=== PATIENT | male | born 1960 | race Caucasian/White ===

== ENCOUNTER 2016-04-25 19:52 | Inpatient (IN) | payer MEDICAID ==
--- NOTE | ~2016-04-25 | EKG ---
PATIENT: CESIA CASTRO UNIT #: [id number] Ventricular Rate: 60 BPM Atrial Rate: 60 BPM P-R Interval: 156 ms QRS Duration: 108 ms Q-T Interval: 394 ms QTC Calculation(Bezet): 394 ms P [place]: 67 degrees Calculated R [place]: -25 degrees Calculated T [place]: 18 degrees Diagnosis Line: Normal sinus rhythm Diagnosis Line: Normal ECG Diagnosis Line: When compared with ECG of 29-APR-2016 06:42, Diagnosis Line: No significant change was found Diagnosis Line: Confirmed by CORA ANTONIO MD ([id number]) on 05/02/2016 Diagnosis Line: 6:22:43 PM INTERPRETING MD: MARISELA DENTON
--- NOTE | ~2016-04-25 | EKG ---
PATIENT: CESIA CASTRO UNIT #: [id number] Ventricular Rate: 91 BPM Atrial Rate: 91 BPM P-R Interval: 158 ms QRS Duration: 96 ms Q-T Interval: 342 ms QTC Calculation(Bezet): 420 ms P [place]: 77 degrees Calculated R [place]: -31 degrees Calculated T [place]: 39 degrees Diagnosis Line: Normal sinus rhythm Diagnosis Line: Possible Left atrial enlargement Diagnosis Line: Left axis deviation Diagnosis Line: Abnormal ECG Diagnosis Line: When compared with ECG of 25-APR-2016 19:29, Diagnosis Line: (unconfirmed) Diagnosis Line: Criteria for Inferior infarct are no longer Diagnosis Line: Present Diagnosis Line: Nonspecific T wave abnormality no longer evident Diagnosis Line: in Lateral leads Diagnosis Line: Confirmed by VIKRAM DAMIAN MD ([id number]) on Diagnosis Line: 04/29/2016 4:09:07 PM INTERPRETING MD: NTAI DENTON
--- NOTE | ~2016-04-25 | EKG ---
PATIENT: CESIA CASTRO UNIT #: [id number] Ventricular Rate: 67 BPM Atrial Rate: 67 BPM P-R Interval: 138 ms QRS Duration: 86 ms Q-T Interval: 386 ms QTC Calculation(Bezet): 407 ms P [place]: 63 degrees Calculated R [place]: -39 degrees Calculated T [place]: 7 degrees Diagnosis Line: Normal sinus rhythm Diagnosis Line: Left axis deviation Diagnosis Line: Abnormal ECG Diagnosis Line: When compared with ECG of 30-APR-2016 15:03, Diagnosis Line: (unconfirmed) Diagnosis Line: No significant change was found Diagnosis Line: Confirmed by CORA ANTONIO MD ([id number]) on 05/02/2016 Diagnosis Line: 6:24:27 PM INTERPRETING MD: MARISELA DENTON
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
--- NOTE | ~2016-04-25 | CR72 ---
[facility] A Service of [facility] RADIOLOGY TEXT RESULTS PATIENT: CESIA CASTRO LOCATION: [facility] [address]-01 : [birth year] UNIT #: [id number] AGE: [address]: Melida White MD SEX: M ORDER DR: [id number] [facility] [address] [facility]. [place], [place] [address] [id number] I MR#: [id number] Acc #: [id number] NAME: CESIA CASTRO. : 1960 SEX: M STUDY DATE/TIME: 04/25/2016 20:15 UNIT: [facility] ROOM: 10663 STUDY DESCRIPTION: CR Chest Single View Portable Attending Physician: Melida White M.D. Ordering Physician: Papi Peace M.D. Primary Care Physician: Bernardo Noyola M.D. MEDICAL IMAGING REPORT This report is preliminary unless electronic signature is present EXAM Portable chest HISTORY Shortness of air and cough for 3 days. Left-sided chest pain. COMPARISON 03/31/2016 FINDINGS A portable view of the chest was obtained. Heart size and vascularity are normal and the lungs are clear. The bones are unremarkable. IMPRESSION No active disease. Dictated by... Yayo Lee M.D. THIS IS AN ELECTRONICALLY VERIFIED REPORT Yayo Lee M.D. at 04/26/2016 4:32 PM VERONICA/roel TD: 04/26/2016 14:08 JOB #: [id number] MEDICAL IMAGING REPORT COPY
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
--- NOTE | ~2016-04-25 | EKG ---
PATIENT: CESIA CASTRO UNIT #: [id number] Ventricular Rate: 64 BPM Atrial Rate: 64 BPM P-R Interval: 158 ms QRS Duration: 98 ms Q-T Interval: 388 ms QTC Calculation(Bezet): 400 ms P [place]: 61 degrees Calculated R [place]: -22 degrees Calculated T [place]: -5 degrees Diagnosis Line: Normal sinus rhythm Diagnosis Line: Normal ECG Diagnosis Line: No previous ECGs available Diagnosis Line: Confirmed by CORA ANTONIO MD ([id number]) on 04/30/2016 Diagnosis Line: 7:14:12 AM INTERPRETING MD: MARISELA DENTON
--- NOTE | ~2016-04-25 | EKG ---
PATIENT: CESIA CASTRO UNIT #: [id number] Ventricular Rate: 61 BPM Atrial Rate: 61 BPM P-R Interval: 154 ms QRS Duration: 106 ms Q-T Interval: 392 ms QTC Calculation(Bezet): 394 ms P [place]: 68 degrees Calculated R [place]: -25 degrees Calculated T [place]: 10 degrees Diagnosis Line: Normal sinus rhythm Diagnosis Line: Normal ECG Diagnosis Line: When compared with ECG of 30-APR-2016 08:32, Diagnosis Line: No significant change was found Diagnosis Line: Confirmed by ANA LUJAN MD ([id number]) on 05/01/2016 Diagnosis Line: 5:41:50 PM INTERPRETING MD: TAI DENTON
--- NOTE | ~2016-04-25 | EKG ---
PATIENT: CESIA CASTRO UNIT #: [id number] Ventricular Rate: 103 BPM Atrial Rate: 103 BPM P-R Interval: 156 ms QRS Duration: 94 ms Q-T Interval: 330 ms QTC Calculation(Bezet): 432 ms P [place]: 82 degrees Calculated R [place]: -19 degrees Calculated T [place]: 72 degrees Diagnosis Line: Sinus tachycardia Diagnosis Line: Inferior infarct (cited on or before 31-MAR-2016) Diagnosis Line: Abnormal ECG Diagnosis Line: When compared with ECG of 31-MAR-2016 10:52, Diagnosis Line: Left anterior fascicular block is no longer Diagnosis Line: Present Diagnosis Line: Confirmed by VIKRAM DAMIAN MD ([id number]) on Diagnosis Line: 04/29/2016 3:57:14 PM INTERPRETING MD: NATI DENTON
--- NOTE | ~2016-04-25 | DS ---
Unit #: [id number] #: [id number] Patient: CESIA CASTRO [id number] [address] [address] [id number] I MR#: [id number] NAME: CESIA CASTRO. ROOM: 578 Age: 56 Sex: M Admission Date: 04/25/2016 : 1960 Discharge Date: 05/01/2016 Attending Physician: Melida White M.D. Primary Care Physician: Bernardo Noyola M.D. DISCHARGE SUMMARY ADMISSION DIAGNOSIS Acute exacerbation of chronic obstructive pulmonary disease. DISCHARGE DIAGNOSES 1. Acute exacerbation of chronic obstructive pulmonary disease, improved. 2. Coronary artery disease, status post PCI. 3. Gastroesophageal reflux disease. 4. Hypertension. 5. Depression. 6. Anxiety disorder. 7. Hyperlipidemia. CONSULTANTS Dr. River in cardiac consultation. Dr. Richter in pulmonary consultation. DIAGNOSTIC DATA LABORATORY: Creatinine 0.7, sodium 134, potassium 5.1. White blood cell count 21.1, hemoglobin 11.1, platelets 505. The patient's influenza A and B screen was negative. PROCEDURES PERFORMED The patient had a cardiac catheterization done, status post PCI. HOSPITAL COURSE The patient is a 56-year-old patient who presented to [facility] with shortness of air. Details are as per admission history and physical. Acute exacerbation of chronic obstructive pulmonary disease: The patient was treated with IV Solu-Medrol. The patient responded well and shortness of air has improved. Chest pain: The patient developed chest pain and myocardial infarction was ruled out. A cardiac catheterization was done and the patient underwent PCI and stent placement by Dr. River. Today the patient is comfortable and is not in any acute distress. PHYSICAL EXAMINATION VITALS: Temperature 97.7, pulse 65 per minute, respiratory rate 16 per minute, blood pressure 135/82. HEENT: No conjunctival congestion. Sclerae nonicteric. Unit #: [id number] #: [id number] Patient: CESIA CASTRO NECK: Supple. Trachea central. LUNGS: Breath sounds equal bilaterally. There are no wheezes or crackles. HEART: Regular rate and rhythm. S1 and S2. ABDOMEN: Soft and nontender. Bowel sounds are present in all four quadrants. NEUROLOGIC: The patient is alert to person, place and time. Power is 5/5 bilaterally. Sensations are grossly intact. SKIN: Warm and dry. DISCHARGE CONDITION Stable. ACTIVITY As tolerated. DISCHARGE MEDICATIONS 1. Albuterol MDI 2 puffs q.4 h. p.r.n. shortness of air. 2. Symbicort 160/4.5 one inhalation b.i.d. 3. Prednisone 20 mg 2 tablets p.o. daily for 5 days, then 1 p.o. daily for 5 days and the discontinue. 4. Tylenol 650 mg p.o. q.6 h. p.r.n. 5. Celexa 20 mg p.o. at nighttime. 6. Trazodone 50 mg p.o. at nighttime. 7. Lopressor 25 mg p.o. b.i.d. 8. Lipitor 80 mg p.o. at nighttime. 9. Lisinopril 20 mg p.o. at nighttime. 10. Enteric coated aspirin 81 mg p.o. daily. 11. Plavix 75 mg p.o. daily. 12. Protonix 40 mg p.o. daily. 13. Nitroglycerin sublingual 0.4 mg p.r.n. chest pain. 14. Zocor 40 mg at nighttime. 15. Atenolol 25 mg p.o. daily. FOLLOWUP 1. The patient is advised to follow up with primary care physician in one week. 2. Follow up with cardiology as recommended. 3. The patient is advised to call primary care physician or go to the emergency room if his condition changes. 4. We will check the patient's pulse oximetry prior to discharge on room air. Dictated by... Alfredito Joseph TD: 05/01/2016 09:43 JOB #: [id number] Unit #: [id number] #: [id number] Patient: CESIA CASTRO Rolf DISCHARGE SUMMARY X Melida White MD DISCHARGE SUMMARY
[2016-04-25 19:28] LABS: BASOPHIL# 0.1 X10e3 (0-0.3); BASOPHIL% 0.9 % (0-2.5); EOSINOPHIL# 0.2 X10e3 (0-0.7); EOSINOPHIL% 1.4 % (0.0-7.0); HEMATOCRIT 36.1 % (38.0-50.0); HEMOGLOBIN 11.7 gm/dL (13.0-16.0); LYMPHOCYTE% 8.4 % (17.0-45.0); MEAN CELL VOLUME 86.8 FL (83-96); MEAN CORPUSCULAR HEMOGLOBIN 28.2 PG (28-34); MEAN CORPUSCULAR HGB CONC 32.5 g/dL (30-36); MEAN PLATELET VOLUME 6.5 FL (6.5-11.5); MONOCYTE# 1.1 X10e3 (0-1.0); MONOCYTE% 8.9 % (3.0-12.0); NEUTROPHIL# 9.6 X10e3 (1.5-7.1); NEUTROPHIL% 80.4 % (40-75); PLATELET COUNT 547 X10e3 (140-420); RED BLOOD COUNT 4.16 X10e (3.90-5.60); RED CELL DISTRIBUTION WIDTH 15.4 % (11.0-15.5); WHITE BLOOD COUNT 11.9 X10e3 (4.0-10.5)
[2016-04-25 19:31] LABS: DIFF IND NO
[2016-04-25 19:31] LABS: POC - CKMB 1.7 ng/mL (0.0-7.9); POC - TROPONIN <0.05 ng/mL (<=0.05)
[2016-04-25 19:41] LABS: PROTHROMBIN TIME (PATIENT) 10.7 SECONDS (9.6-11.5)
[~2016-04-25 19:52] MED LIST: ALBUTEROL17 GM INH; ASPIRIN325 M1 PO; ATIVAN0.5 M1 PO; AZITHROMYCIN250 MG PO; CEFDINIR300 MG PO; CELEXA PO; CELEXA20 M1 PO; CELEXA20 MG PO; CHEWABLE ASPIRI81 MG PO; COMBIVENT RESPIM4 GM INH; CRESTOR PO; DESYREL50 MG PO; DOXYCYCLINE PO; EFFIENT10 MG PO; FERROUS GL325 ( 37.5 PO; HALDOL PO; HYDROCHLOROTHIA25 MG PO; HYDROXYZINE HCL25 M1 PO; LEVAQUIN750 M1 PO; LEVOFLOXACIN500 MG PO; LISINOPRIL20 MG PO; LOVASTATIN20 MG PO; MEDROL DOSEPAK4 MG PO; METOPROLOL TAR25 MG PO; MOBIC PO; MOBIC15 MG PO; MOTRIN600 MG PO; NEURONTIN300 MG PO; NITROSTAT0.4 MG SL; NO MEDICATIONS; NORCO 10/3251 TAB PO; NORVASC PO; PREDNISONE PO; PREDNISONE50 MG PO; PROAIR HFA8.5 GM; PROAIR HFA8.5 GM INH; PROTONIX PO; REMERON15 MG PO; SYMBICORT; SYMBICORT 160/4.6 G1 INH; SYMBICORT 16010.2 GM IH; SYMBICORT INH; VASOTEC PO; VISTARIL PO; ZESTRIL40 MG PO; ZITHROMAX PO
[2016-04-25 19:53] LABS: ALBUMIN SERUM 3.6 g/dL (3.5-5.0); ALKALINE PHOSPHATASE 74 U/L (32-92); ALT (SGPT) 16 U/L (10-40); AST (SGOT) 15 U/L (10-42); BILIRUBIN, DIRECT 0.1 mg/dL (0.0-0.2); BILIRUBIN,INDIRECT 0.3 mg/dL (0.0-0.9); BILIRUBIN,TOTAL 0.4 mg/dL (0.2-2.0); BLOOD UREA NITROGEN 14 mg/dL (9-23); CALCIUM SERUM 8.8 mg/dL (8.4-10.2); CARBON DIOXIDE 31 mmol/L (22-31); CHLORIDE 101 mmol/L (100-111); CREATININE SERUM 0.7 mg/dL (0.6-1.4); GLOM FILT RATE Estimated ABOVE60 mL/min (>60); GLUCOSE FASTING 119 mg/dL (70-110); POTASSIUM 4.1 mmol/L (3.5-5.1); PROTEIN TOTAL SERUM 7.3 g/dL (6.0-8.3); SODIUM 137 mmol/L (135-145)
[2016-04-25 20:03] LABS: INFLUENZA A NEG (NEG); INFLUENZA B NEG (NEG)
[2016-04-25 20:53] LABS: POC - CKMB 1.3 ng/mL (0.0-7.9); POC - TROPONIN <0.05 ng/mL (<=0.05)
[2016-04-26 04:11] LABS: HEMATOCRIT 34.2 % (38.0-50.0); LYMPHOCYTE# 0.4 X10e3 (1.0-3.5); LYMPHOCYTE% 5.2 % (17.0-45.0); MEAN CELL VOLUME 86.8 FL (83-96); MEAN CORPUSCULAR HEMOGLOBIN 27.9 PG (28-34); MEAN CORPUSCULAR HGB CONC 32.2 g/dL (30-36); MEAN PLATELET VOLUME 6.4 FL (6.5-11.5); MONOCYTE# 0.1 X10e3 (0-1.0); MONOCYTE% 0.7 % (3.0-12.0); NEUTROPHIL% 94.1 % (40-75); PLATELET COUNT 522 X10e3 (140-420); RED BLOOD COUNT 3.93 X10e (3.90-5.60); RED CELL DISTRIBUTION WIDTH 15.1 % (11.0-15.5); WHITE BLOOD COUNT 8.5 X10e3 (4.0-10.5)
[2016-04-26 04:14] LABS: DIFF IND NO
[2016-04-26 04:37] LABS: BLOOD UREA NITROGEN 19 mg/dL (9-23); BUN/CREATININE RATIO 27.14; CALCIUM SERUM 8.2 mg/dL (8.4-10.2); CARBON DIOXIDE 27 mmol/L (22-31); CHLORIDE 95 mmol/L (100-111); CPK (CREATINE PHOSPHOKINASE) 27 IU/L (36-174); CREATININE SERUM 0.7 mg/dL (0.6-1.4); GLOM FILT RATE Estimated ABOVE60 mL/min (>60); GLUCOSE FASTING 493 mg/dL (70-110); POTASSIUM 4.7 mmol/L (3.5-5.1)
[2016-04-26 04:43] LABS: SODIUM 127 mmol/L (135-145)
[2016-04-27 10:28] LABS: HEMATOCRIT 33.1 % (38.0-50.0); HEMOGLOBIN 10.9 gm/dL (13.0-16.0); MEAN CELL VOLUME 86.1 FL (83-96); MEAN CORPUSCULAR HEMOGLOBIN 28.4 PG (28-34); MEAN PLATELET VOLUME 6.3 FL (6.5-11.5); RED BLOOD COUNT 3.84 X10e (3.90-5.60)
[2016-04-27 10:29] LABS: WHITE BLOOD COUNT 16.3 X10e3 (4.0-10.5)
[2016-04-27 11:35] LABS: BLOOD UREA NITROGEN 25 mg/dL (9-23); BUN/CREATININE RATIO 41.66; CALCIUM SERUM 9.1 mg/dL (8.4-10.2); CARBON DIOXIDE 28 mmol/L (22-31); CHLORIDE 102 mmol/L (100-111); CREATININE SERUM 0.6 mg/dL (0.6-1.4); GLOM FILT RATE Estimated ABOVE60 mL/min (>60); GLUCOSE FASTING 205 mg/dL (70-110); POTASSIUM 4.3 mmol/L (3.5-5.1); SODIUM 137 mmol/L (135-145)
[2016-04-27 12:31] LABS: ARTERIAL BLD GAS O2 SATURATION 90.5 % (90.0-100.0); ARTERIAL BLOOD GAS CARBOXY HB 0.4 %sat (0.0-9.0); ARTERIAL BLOOD GAS HCO3 27.3 mmol/L; ARTERIAL BLOOD GAS MET HB 0.9 %sat (0.0-2.0); ARTERIAL BLOOD GAS PCO2 41.9 mmHg (35.0-45.0); ARTERIAL BLOOD GAS pH 7.423 (7.350-7.450)
[2016-04-27 12:32] LABS: ARTERIAL BLOOD GAS ALLEN TEST NORMAL; ARTERIAL BLOOD GAS ART SITE RIGHT RADIAL; ARTERIAL BLOOD GAS DELIVERY NASAL CANNULA; ARTERIAL BLOOD GAS PO2 61.4 mmHg (80.0-100); ARTERIAL DRAW? YES
[2016-04-28 07:49] LABS: HEMATOCRIT 34.2 % (38.0-50.0); HEMOGLOBIN 11.2 gm/dL (13.0-16.0); MEAN CELL VOLUME 85.4 FL (83-96); MEAN CORPUSCULAR HGB CONC 32.7 g/dL (30-36); MEAN PLATELET VOLUME 6.4 FL (6.5-11.5); RED CELL DISTRIBUTION WIDTH 15.3 % (11.0-15.5); WHITE BLOOD COUNT 15.8 X10e3 (4.0-10.5)
[2016-04-28 07:59] LABS: BLOOD UREA NITROGEN 26 mg/dL (9-23); BUN/CREATININE RATIO 43.33; CARBON DIOXIDE 27 mmol/L (22-31); CHLORIDE 101 mmol/L (100-111); CREATININE SERUM 0.6 mg/dL (0.6-1.4); GLOM FILT RATE Estimated ABOVE60 mL/min (>60); GLUCOSE FASTING 152 mg/dL (70-110); POTASSIUM 4.3 mmol/L (3.5-5.1); SODIUM 137 mmol/L (135-145)
[2016-04-28 12:21] LABS: CK TOTAL 28 IU/L (36-174)
[2016-04-28 15:23] LABS: CK TOTAL 19 IU/L (36-174)
[2016-04-29 06:09] LABS: HEMOGLOBIN 10.6 gm/dL (13.0-16.0); MEAN CELL VOLUME 85.5 FL (83-96); MEAN CORPUSCULAR HEMOGLOBIN 27.5 PG (28-34); MEAN CORPUSCULAR HGB CONC 32.2 g/dL (30-36); MEAN PLATELET VOLUME 6.5 FL (6.5-11.5); RED BLOOD COUNT 3.87 X10e (3.90-5.60); RED CELL DISTRIBUTION WIDTH 14.9 % (11.0-15.5)
[2016-04-29 06:29] LABS: PARTIAL THROMBOPLASTIN TIME 26.1 SECONDS (23.5-31.3); PROTHROMBIN TIME (PATIENT) 10.8 SECONDS (9.6-11.5)
[2016-04-29 06:38] LABS: BLOOD UREA NITROGEN 28 mg/dL (9-23); BUN/CREATININE RATIO 46.66; CALCIUM SERUM 8.9 mg/dL (8.4-10.2); CARBON DIOXIDE 26 mmol/L (22-31); CHLORIDE 102 mmol/L (100-111); CREATININE SERUM 0.6 mg/dL (0.6-1.4); GLOM FILT RATE Estimated ABOVE60 mL/min (>60); GLUCOSE FASTING 163 mg/dL (70-110); POTASSIUM 4.4 mmol/L (3.5-5.1); SODIUM 139 mmol/L (135-145)
[2016-04-29 06:45] LABS: CHOLESTEROL 149 mg/dL (0-200); HDL CHOLESTEROL 49 mg/dL (29-75); LDL CHOLESTEROL 81 mg/dL ([, -130]); LDL/HDL RATIO 2 RATIO (0-4); TRIGLYCERIDES 96 mg/dL (10-160)
[2016-04-30 09:22] LABS: HEMATOCRIT 34.8 % (38.0-50.0); HEMOGLOBIN 11.1 gm/dL (13.0-16.0); MEAN CELL VOLUME 85.5 FL (83-96); MEAN CORPUSCULAR HEMOGLOBIN 27.3 PG (28-34); MEAN CORPUSCULAR HGB CONC 31.9 g/dL (30-36); MEAN PLATELET VOLUME 6.3 FL (6.5-11.5); RED BLOOD COUNT 4.07 X10e (3.90-5.60); RED CELL DISTRIBUTION WIDTH 15.3 % (11.0-15.5); WHITE BLOOD COUNT 18.4 X10e3 (4.0-10.5)
[2016-04-30 09:42] LABS: PARTIAL THROMBOPLASTIN TIME 22.9 SECONDS (23.5-31.3); PROTHROMBIN TIME (PATIENT) 10.7 SECONDS (9.6-11.5)
[2016-04-30 09:53] LABS: BLOOD UREA NITROGEN 26 mg/dL (9-23); BUN/CREATININE RATIO 43.33; CALCIUM SERUM 8.8 mg/dL (8.4-10.2); CARBON DIOXIDE 28 mmol/L (22-31); CHLORIDE 102 mmol/L (100-111); CREATININE SERUM 0.6 mg/dL (0.6-1.4); GLOM FILT RATE Estimated ABOVE60 mL/min (>60); GLUCOSE FASTING 152 mg/dL (70-110); POTASSIUM 4.6 mmol/L (3.5-5.1); SODIUM 137 mmol/L (135-145)
[2016-04-30 23:29] LABS: ANGIO %MB 8.6 % (0.0-4.0); ANGIO MB 2.5 ng/ml
[2016-05-01 07:31] LABS: BASOPHIL% 0.1 % (0-2.5); HEMATOCRIT 34.3 % (38.0-50.0); HEMOGLOBIN 11.1 gm/dL (13.0-16.0); LYMPHOCYTE% 4.7 % (17.0-45.0); MEAN CELL VOLUME 85.3 FL (83-96); MEAN CORPUSCULAR HEMOGLOBIN 27.6 PG (28-34); MEAN CORPUSCULAR HGB CONC 32.4 g/dL (30-36); MEAN PLATELET VOLUME 6.5 FL (6.5-11.5); MONOCYTE# 0.8 X10e3 (0-1.0); MONOCYTE% 3.9 % (3.0-12.0); NEUTROPHIL# 19.2 X10e3 (1.5-7.1); NEUTROPHIL% 91.3 % (40-75); PLATELET COUNT 505 X10e3 (140-420); RED BLOOD COUNT 4.03 X10e (3.90-5.60); RED CELL DISTRIBUTION WIDTH 15.4 % (11.0-15.5); WHITE BLOOD COUNT 21.1 X10e3 (4.0-10.5)
[2016-05-01 07:40] LABS: DIFF IND YES
[2016-05-01 08:20] LABS: ANGIO %MB 8.8 % (0.0-4.0); ANGIO MB 2.8 ng/ml
[2016-05-01 08:22] LABS: BLOOD UREA NITROGEN 32 mg/dL (9-23); BUN/CREATININE RATIO 45.71; CALCIUM SERUM 8.9 mg/dL (8.4-10.2); CARBON DIOXIDE 29 mmol/L (22-31); CHLORIDE 96 mmol/L (100-111); CHOLESTEROL 136 mg/dL (0-200); CREATININE SERUM 0.7 mg/dL (0.6-1.4); GLOM FILT RATE Estimated ABOVE60 mL/min (>60); GLUCOSE FASTING 196 mg/dL (70-110); HDL CHOLESTEROL 60 mg/dL (29-75); LDL CHOLESTEROL 42 mg/dL ([, -130]); LDL/HDL RATIO 1 RATIO (0-4); POTASSIUM 5.1 mmol/L (3.5-5.1); SODIUM 134 mmol/L (135-145); TRIGLYCERIDES 170 mg/dL (10-160)
[2016-05-01 08:28] LABS: PLATELET ESTIMATE INCREASED (NORMAL)
[2016-05-01 08:30] LABS: ANISOCYTOSIS SL
[2016-05-01] MEDS ORDERED: ACETAMINOPHEN325 MG PO (12:13)
[2016-05-01] MEDS ORDERED: ASPIRIN81 MG PO (12:14)
[2016-05-01] MEDS ORDERED: DOXYCYCLINE HY100 M3 PO (12:16)
[2016-05-01] MEDS ORDERED: NITROGLYCERIN0.4 MG SL (12:19)
[2016-05-01] MEDS ORDERED: ATENOLOL25 MG PO (12:19)
[2016-05-01] MEDS ORDERED: DELTASONE20 MG PO (12:26)
[2016-05-01] MEDS ORDERED: NEURONTIN300 MG PO (12:56)
[2016-05-01] MEDS ORDERED: CLOPIDOGREL75 MG PO (13:25)
[2016-05-01] MEDS ORDERED: SIMVASTATIN40 MG PO (14:00)
[2016-06-19] MEDS ORDERED: ALBUTEROL17 GM INH (13:00)
[2016-06-19] MEDS ORDERED: PROTONIX PO (13:00)
[2016-06-19] MEDS ORDERED: IBUPROFEN IB200 M1 PO (13:01)
== END 2016-05-01 14:26 | disposition home or self-care (01) | DRG 981 ==
LOC: CED 19:52 → CEDOF 21:00 → C5C 04-27 09:44
PROVIDERS: Emergency Medicine; Internal Medicine; Internal Medicine Cardiovascular Disease; Nurse Practitioner
PROC: 4A023N7 Measurement of Cardiac Sampling and Pressure, Left Heart, Percutaneous Approach (ICD-10-PCS; principal; 2016-04-29)
PROC: B211YZZ Fluoroscopy of Multiple Coronary Arteries using Other Contrast (ICD-10-PCS; 2016-04-29)
PROC: B215YZZ Fluoroscopy of Left Heart using Other Contrast (ICD-10-PCS; 2016-04-29)
PROC: 027136Z Dilation of Coronary Artery, Two Arteries with Three Drug-eluting Intraluminal Devices, Percutaneous Approach (ICD-10-PCS; 2016-04-30)
DX: J44.1 Chronic obstructive pulmonary disease with (acute) exacerbation (principal); J96.01 Acute respiratory failure with hypoxia; J44.0 Chronic obstructive pulmonary disease with (acute) lower respiratory infection; J20.9 Acute bronchitis, unspecified; I25.2 Old myocardial infarction; Z59.0 Homelessness; I10 Essential (primary) hypertension; E78.5 Hyperlipidemia, unspecified; K21.9 Gastro-esophageal reflux disease without esophagitis; G89.29 Other chronic pain; Z80.9 Family history of malignant neoplasm, unspecified; R51 Headache; F17.210 Nicotine dependence, cigarettes, uncomplicated; R07.9 Chest pain, unspecified
CPT/HCPCS: 36415; 36600; 71010; 80048; 80061; 80076; 82550; 82553; 82803; 83880; 84443; 84484; 85025; 85027; 85049; 85347; 85610; 85730; 87804; 93005; 94640; 94664; 94760; 94761; 96374; 96375; 96376; 99285; C1725; C1769; C1874; C1887; C1894; J0461; J1327; J1644; J1650; J1885; J1956; J2250; J2270; J2405; J2930; J3010; J3490

== ENCOUNTER 2016-05-10 21:00 | Emergency (ER) | payer MEDICAID ==
--- NOTE | ~2016-05-10 | ER ---
Unit #: [id number] #: [id number] Patient: CESIA CASTRO [id number] [address] [place], [place] [address] [id number] E MR#: [id number] NAME: CESIA CASTRO ROOM: Sex: M Age: 56 : 1960 Service Date: 05/10/2016 Attending Physician: Maurice Gonsalez M.D. Primary Care Physician: Bernardo Noyola M.D. EMERGENCY DEPT PHYSICIAN NOTE Please see the written T-sheet for the full details of the encounter. Mr. Castro is a 56-year-old man who presented to the emergency department earlier in the night with the chief complaint of right forearm pain and swelling for the last several months which he attributed to a TB test that he had had done previously. It was initially assessed by another emergency department physician for this complaint. Initially, he was described as being agitated and uncooperative. As such, he was administered and anxiolytic to attempt to improve his cooperation. He also stated that he was having shortness of breath with a known history of COPD. A chest x-ray was performed which showed a questionable infiltrate and, after receiving report on the patient and assuming care, I went to discuss the results of the chest x-ray with the patient. In informed him that there was a questionable area of pneumonia and, therefore, we would be covering the patient with an antibiotic as well as an oral steroid for treatment of his COPD. The patient was unconcerned with the COPD but seemed very fixated on the chronic swelling in his arm that had been present for the last two months. He stated that he believed he needed to be admitted to the hospital for this arm swelling. I explained to him that since it had been present for two months, both myself and the previous physician did not feel that it was an acute issue and, therefore, would be appropriate to be followed up with his primary care physician at his earliest convenience. Discharge instructions were written. However, when the nurse went to discharge the patient he became excessively angry stating that he did not wish to leave and that he was not going to leave until something was done about his arm pain. The confrontation gradually escalated and the patient was screening profanities at the nurse and myself, making threatening statements. As such, security was paged and was present in the room at the time of discharge. However, the patient continued to make threats and yell at both nurses and other hospital staff. Again, security will be paged to escort the patient off the property. Dictated by.aSndrita. Alfredito Westbrook/emilio TD: 05/11/2016 10:31 JOB #: [id number] Unit #: [id number] #: [id number] Patient: CESIA CASTRO EMERGENCY DEPT PHYSICIAN NOTE X Maurice Gonsalez MD EMERGENCY DEPARTMENT REPORT
--- NOTE | ~2016-05-10 | CR72 ---
[facility] A Service of [facility] RADIOLOGY TEXT RESULTS PATIENT: CESIA CASTRO LOCATION: [facility] : 60 UNIT #: [id number] AGE: [address]: Maurice Gonsalez MD SEX: M ORDER DR: [id number] [facility] [address] [place], [place] [address] [id number] E MR#: [id number] Acc #: [id number] NAME: CESIA CASTRO. : 1960 SEX: M STUDY DATE/TIME: 05/10/2016 21:35 UNIT: [facility] ROOM: STUDY DESCRIPTION: CR Chest Single View Portable Attending Physician: Maurice Gonsalez M.D. Ordering Physician: Nii Palomino M.D. Primary Care Physician: Bernardo Noyola M.D. MEDICAL IMAGING REPORT This report is preliminary unless electronic signature is present EXAM AP portable chest 05/10/2016 HISTORY 56-year-old male in the ED complaining of 4-day history of chest pain, difficulty breathing and right arm pain. Elevated blood pressure. TECHNIQUE AP portable chest x-ray. FINDINGS The exam shows minimal infiltrate or atelectasis in the right lung base, new or increased when compared with the previous study of 04/25/2016. The lungs are otherwise clear. No visible airspace, consolidation or pleural effusion. Shallow lung expansion is noted. Heart size and pulmonary vascularity are normal. IMPRESSION Mild infiltrate or atelectasis in the right lung base. Shallow lung expansion. Dictated by... Uriel King M.D. THIS IS AN ELECTRONICALLY VERIFIED REPORT Uriel King M.D. at 05/12/2016 9:53 PM ANALYW/dom TD: 05/12/2016 07:19 JOB #: [id number] MEDICAL IMAGING REPORT COPY
[~2016-05-10 21:00] MED LIST changes: +ACETAMINOPHEN325 MG PO; +ASPIRIN81 MG PO; +ATENOLOL25 MG PO; +CLOPIDOGREL75 MG PO; +DELTASONE20 MG PO; +DOXYCYCLINE HY100 M3 PO; +NITROGLYCERIN0.4 MG SL; +SIMVASTATIN40 MG PO
[2016-06-19] MEDS ORDERED: ALBUTEROL17 GM INH (13:00)
[2016-06-19] MEDS ORDERED: PROTONIX PO (13:00)
[2016-06-19] MEDS ORDERED: IBUPROFEN IB200 M1 PO (13:01)
== END 2016-05-10 23:20 | disposition home or self-care (01) ==
LOC: CED 21:00
DX: M79.631 Pain in right forearm (principal); R06.00 Dyspnea, unspecified; F17.200 Nicotine dependence, unspecified, uncomplicated; J45.909 Unspecified asthma, uncomplicated; I10 Essential (primary) hypertension; Z95.1 Presence of aortocoronary bypass graft
CPT/HCPCS: 71010; 94644; 99284

== ENCOUNTER 2016-05-11 17:49 | Emergency (ER) | payer MEDICAID ==
--- NOTE | ~2016-05-11 | CR282 ---
[facility] A Service [facility] RADIOLOGY TEXT RESULTS PATIENT: CESIA CASTRO LOCATION: [facility] : 60 UNIT #: [id number] AGE: [address]: Edwar Marquez MD SEX: M ORDER DR: [id number] [place] [address] [id number] E MR#: [id number] Acc #: [id number] NAME: CESIA CASTRO. : 1960 SEX: M STUDY DATE/TIME: 05/11/2016 18:31 UNIT: SED ROOM: STUDY DESCRIPTION: CR Wrist Min 3 View Rt Attending Physician: Edwar Marquez M.D. Ordering Physician: Edwar Marquez M.D. Primary Care Physician: Bernardo Noyola M.D. MEDICAL IMAGING REPORT This report is preliminary unless electronic signature is present. EXAM Right wrist HISTORY Pain and swelling since being administered a TB skin test 2 months ago. TECHNIQUE 3 views of the wrist were obtained. FINDINGS Wrist evaluation in multiple projections shows normal mineralization of the bony structures about the wrist and satisfactory articular relationship of the radius and ulna to the proximal carpal row and of the distal carpal segments to the metacarpal bases. There is no indication of fracture or dislocation, and no soft tissue radiopaque foreign body is present. No congenital defects are apparent. IMPRESSION Normal wrist. Dictated by... Coy Mendez M.D. THIS IS AN ELECTRONICALLY VERIFIED REPORT Coy Mendez M.D. at 05/13/2016 11:02 AM MALATHI/roel TD: 05/12/2016 11:56 JOB #: [id number] MEDICAL IMAGING REPORT [facility] A Service [facility] RADIOLOGY TEXT RESULTS PATIENT: CESIA CASTRO LOCATION: [facility] : 60 UNIT #: [id number] AGE: [address]: Edwar Marquez MD SEX: M ORDER DR: Page 1 of 1
[2016-06-19] MEDS ORDERED: ALBUTEROL17 GM INH (13:00)
[2016-06-19] MEDS ORDERED: PROTONIX PO (13:00)
[2016-06-19] MEDS ORDERED: IBUPROFEN IB200 M1 PO (13:01)
== END 2016-05-11 19:00 | disposition home or self-care (01) ==
LOC: SED 17:49
DX: M25.531 Pain in right wrist (principal); J44.9 Chronic obstructive pulmonary disease, unspecified; K21.9 Gastro-esophageal reflux disease without esophagitis; F17.200 Nicotine dependence, unspecified, uncomplicated
CPT/HCPCS: 73110; 99283

== ENCOUNTER 2016-05-17 08:09 | Emergency (ER) | payer MEDICAID ==
--- NOTE | ~2016-05-17 | EKG ---
PATIENT: CESIA CASTRO UNIT #: [id number] Ventricular Rate: 96 BPM Atrial Rate: 96 BPM P-R Interval: 154 ms QRS Duration: 88 ms Q-T Interval: 346 ms QTC Calculation(Bezet): 437 ms P [place]: 78 degrees Calculated R [place]: -46 degrees Calculated T [place]: 35 degrees Diagnosis Line: Normal sinus rhythm Diagnosis Line: Left anterior fascicular block Diagnosis Line: Abnormal ECG Diagnosis Line: When compared with ECG of 01-MAY-2016 06:59, Diagnosis Line: Minimal criteria for Inferior infarct are now Diagnosis Line: Present Diagnosis Line: Confirmed by ANA LUJAN MD ([id number]) on 05/19/2016 Diagnosis Line: 10:52:31 PM INTERPRETING MD: TAI DENTON
--- NOTE | ~2016-05-17 | CR72 ---
[facility] A Service of [facility] RADIOLOGY TEXT RESULTS PATIENT: CESIA CASTRO LOCATION: [facility] : 60 UNIT #: [id number] AGE: [address]: Luh Martinez MD SEX: M ORDER DR: [id number] [place] [id number] [facility]. [place], [place] [address] [id number] E MR#: [id number] Acc #: [id number] NAME: CESIA CASTRO. : 1960 SEX: M STUDY DATE/TIME: 05/17/2016 7:23 UNIT: [facility] ROOM: STUDY DESCRIPTION: CR Chest Single View Portable Attending Physician: Luh Martinez M.D. Ordering Physician: Luh Martinez M.D. Primary Care Physician: Bernardo Noyola M.D. MEDICAL IMAGING REPORT This report is preliminary unless electronic signature is present EXAM Portable AP view of the chest. DATE OF EXAM 05/17/2016 COMPARISON May 10, 2016, April 25, 2016, and March 31, 2016. INDICATIONS 56-year-old male with left-sided chest pain and left arm numbness since this morning. FINDINGS Cardiomediastinal silhouette is normal. No evidence of pneumothorax, pleural effusion or acute airspace disease. Stable prominence of the pulmonary interstitium which may reflect underlying emphysema or interstitial lung disease. However, CT of March 31, 2016, does not demonstrate any evidence of either entity. Radiographic findings are nonspecific and likely clinically insignificant. IMPRESSION No acute radiographic abnormality of the chest. Dictated by... Jose De Jesus Aguilera M.D. THIS IS AN ELECTRONICALLY VERIFIED REPORT Jose De Jesus Aguilera M.D. at 05/20/2016 9:41 AM DANIEL/olga lidia TD: 05/17/2016 17:29 [facility] A Service of [facility] RADIOLOGY TEXT RESULTS PATIENT: CESIA CASTRO LOCATION: [facility] : 60 UNIT #: [id number] AGE: [address]: Luh Martinez MD SEX: M ORDER DR: JOB #: [id number] MEDICAL IMAGING REPORT Page 1 of 1 COPY
[2016-05-17 07:45] LABS: BASOPHIL# 0.1 X10e3 (0-0.3); EOSINOPHIL# 0.3 X10e3 (0-0.7); EOSINOPHIL% 2.8 % (0.0-7.0); HEMATOCRIT 35.5 % (38.0-50.0); HEMOGLOBIN 11.4 gm/dL (13.0-16.0); LYMPHOCYTE# 2.8 X10e3 (1.0-3.5); LYMPHOCYTE% 24.5 % (17.0-45.0); MEAN CELL VOLUME 86.3 FL (83-96); MEAN CORPUSCULAR HEMOGLOBIN 27.7 PG (28-34); MEAN CORPUSCULAR HGB CONC 32.1 g/dL (30-36); MEAN PLATELET VOLUME 6.6 FL (6.5-11.5); MONOCYTE# 0.8 X10e3 (0-1.0); MONOCYTE% 6.9 % (3.0-12.0); NEUTROPHIL# 7.5 X10e3 (1.5-7.1); NEUTROPHIL% 64.8 % (40-75); PLATELET COUNT 391 X10e3 (140-420); RED BLOOD COUNT 4.11 X10e (3.90-5.60); RED CELL DISTRIBUTION WIDTH 15.6 % (11.0-15.5); WHITE BLOOD COUNT 11.5 X10e3 (4.0-10.5)
[2016-05-17 07:48] LABS: DIFF IND NO
[2016-05-17 07:55] LABS: POC - TROPONIN <0.05 ng/mL (<=0.05)
[2016-05-17 08:00] LABS: PARTIAL THROMBOPLASTIN TIME 23.7 SECONDS (23.5-31.3); PROTHROMBIN TIME (PATIENT) 10.8 SECONDS (9.6-11.5)
[2016-05-17 08:54] LABS: URINE SOURCE CLEAN CATCH
[2016-05-17 08:58] LABS: URINE APPEARANCE CLOUDY; URINE BILIRUBIN NEG (NEG); URINE BLOOD NEG (NEG); URINE COLOR YELLOW; URINE GLUCOSE NEG (NEG); URINE KETONE NEG (NEG); URINE LEUKOCYTE ESTERASE NEG (NEG); URINE NITRATE NEG (NEG); URINE PROTEIN NEG (NEG); URINE SPECIFIC GRAVITY 1.021 (1.003-1.035)
[2016-05-17 09:02] LABS: CULTURE INDICATED? NO
[2016-05-17 09:06] LABS: ALBUMIN SERUM 3.6 g/dL (3.5-5.0); ALKALINE PHOSPHATASE 72 U/L (32-92); ALT (SGPT) 21 U/L (10-40); AST (SGOT) 15 U/L (10-42); BILIRUBIN, DIRECT 0.1 mg/dL (0.0-0.2); BILIRUBIN,INDIRECT 0.6 mg/dL (0.0-0.9); BILIRUBIN,TOTAL 0.7 mg/dL (0.2-2.0); BLOOD UREA NITROGEN 17 mg/dL (9-23); BUN/CREATININE RATIO 28.33; CALCIUM SERUM 8.6 mg/dL (8.4-10.2); CARBON DIOXIDE 22 mmol/L (22-31); CHLORIDE 102 mmol/L (100-111); CREATININE SERUM 0.6 mg/dL (0.6-1.4); GLOM FILT RATE Estimated 112.4 mL/min (>60); GLUCOSE FASTING 111 mg/dL (70-110); MAGNESIUM 2.1 mg/dL (1.6-3.0); POTASSIUM 3.8 mmol/L (3.5-5.1); SODIUM 133 mmol/L (135-145)
[2016-05-17 09:07] LABS: ALCOHOL BLOOD <5 mg/dL (0)
[2016-05-17 09:28] LABS: AMPHETAMINE POS (NEG); BARBITURATES NEG (NEG); BENZODIAZEPINES NEG (NEG); COCAINE NEG (NEG); MARIJUANA NEG (NEG); OPIATES NEG (NEG); TRICYCLIC ANTIDEPRESSANTS POS (NEG); U METHADONE NEG (NEG)
[2016-05-17 10:20] LABS: POC - CKMB <1.0 ng/mL (0.0-7.9); POC - TROPONIN <0.05 ng/mL (<=0.05)
[2016-06-19] MEDS ORDERED: PROTONIX PO (13:00)
[2016-06-19] MEDS ORDERED: ALBUTEROL17 GM INH (13:00)
[2016-06-19] MEDS ORDERED: IBUPROFEN IB200 M1 PO (13:01)
== END 2016-05-17 11:35 | disposition home or self-care (01) ==
LOC: CED 08:09
PROVIDERS: Student in an Organized Health Care Education/Training Program
DX: J44.1 Chronic obstructive pulmonary disease with (acute) exacerbation (principal); M54.32 Sciatica, left side; M25.531 Pain in right wrist; G89.29 Other chronic pain; K21.9 Gastro-esophageal reflux disease without esophagitis; F19.10 Other psychoactive substance abuse, uncomplicated; Z98.890 Other specified postprocedural states; F17.200 Nicotine dependence, unspecified, uncomplicated; Z79.899 Other long term (current) drug therapy
CPT/HCPCS: 36415; 71010; 80048; 80076; 80307; 81003; 82553; 83735; 83880; 84484; 85025; 85610; 85730; 93005; 94640; 96374; 99284; G0480; J2930

== ENCOUNTER 2016-05-19 23:55 | Emergency (ER) | payer MEDICAID ==
[2016-06-19] MEDS ORDERED: ALBUTEROL17 GM INH (13:00)
[2016-06-19] MEDS ORDERED: PROTONIX PO (13:00)
[2016-06-19] MEDS ORDERED: IBUPROFEN IB200 M1 PO (13:01)
== END 2016-05-20 06:46 | disposition home or self-care (01) ==
LOC: CED 23:55
DX: J45.909 Unspecified asthma, uncomplicated (principal); J44.9 Chronic obstructive pulmonary disease, unspecified; F17.210 Nicotine dependence, cigarettes, uncomplicated
CPT/HCPCS: 94640; 99283

== ENCOUNTER 2016-06-07 11:34 | Emergency (ER) | payer MEDICAID ==
--- NOTE | ~2016-06-07 | CR72 ---
[facility] A Service of [facility] RADIOLOGY TEXT RESULTS PATIENT: CESIA CASTRO LOCATION: [facility] : 60 UNIT #: [id number] AGE: [address]: Coy Amador MD SEX: M ORDER DR: [id number] [facility] [address] [place], [place] [address] [id number] E MR#: [id number] Acc #: [id number] NAME: CESIA CASTRO. : 1960 SEX: M STUDY DATE/TIME: 06/07/2016 10:42 UNIT: [facility] ROOM: STUDY DESCRIPTION: CR Chest Single View Portable Attending Physician: Coy Amador M.D. Ordering Physician: Coy Amador M.D. Primary Care Physician: Bernardo Noyola M.D. MEDICAL IMAGING REPORT This report is preliminary unless electronic signature is present EXAM Portable chest INDICATION Cough and congestion starting today. FINDINGS Comparison made to prior exam from May 17, 2016. Heart size is within normal limits. Lungs appear clear. No focal infiltrates are identified. There is no pneumothorax or pleural effusion. Patient does have a tiny nodular density identified within the right upper lobe measuring about 8 mm in size. I am unable to definitively identify this on the patient's prior chest radiograph. It may reflect a benign finding. Attention to it on a short-term followup exam is recommended. Alternatively it could be further characterized with CT of a nonemergent outpatient basis. Dictated by... Marianne Winston M.D. THIS IS AN ELECTRONICALLY VERIFIED REPORT Marianne Winston M.D. at 06/10/2016 1:00 PM AFF/rnr TD: 06/08/2016 04:35 JOB #: [id number] MEDICAL IMAGING REPORT Page 1 of 1 COPY
--- NOTE | ~2016-06-07 | EKG ---
PATIENT: CESIA CASTRO UNIT #: [id number] Ventricular Rate: 82 BPM Atrial Rate: 82 BPM P-R Interval: 158 ms QRS Duration: 94 ms Q-T Interval: 360 ms QTC Calculation(Bezet): 420 ms P [place]: 69 degrees Calculated R [place]: -51 degrees Calculated T [place]: 19 degrees Diagnosis Line: Normal sinus rhythm Diagnosis Line: Left anterior fascicular block Diagnosis Line: Abnormal ECG Diagnosis Line: When compared with ECG of 17-MAY-2016 07:24, Diagnosis Line: Minimal criteria for Inferior infarct are no Diagnosis Line: longer Present Diagnosis Line: Confirmed by CORA ANTONIO MD ([id number]) on 06/08/2016 Diagnosis Line: 7:16:16 AM INTERPRETING MD: MARISELA DENTON
[2016-06-07 10:48] LABS: BASOPHIL# 0.2 X10e3 (0-0.3); BASOPHIL% 1.3 % (0-2.5); DIFF IND NO; EOSINOPHIL# 0.2 X10e3 (0-0.7); EOSINOPHIL% 1.4 % (0.0-7.0); HEMATOCRIT 33.6 % (38.0-50.0); HEMOGLOBIN 10.7 gm/dL (13.0-16.0); LYMPHOCYTE# 1.9 X10e3 (1.0-3.5); LYMPHOCYTE% 16.5 % (17.0-45.0); MEAN CELL VOLUME 85.9 FL (83-96); MEAN CORPUSCULAR HEMOGLOBIN 27.2 PG (28-34); MEAN CORPUSCULAR HGB CONC 31.7 g/dL (30-36); MEAN PLATELET VOLUME 6.8 FL (6.5-11.5); MONOCYTE% 8.7 % (3.0-12.0); NEUTROPHIL# 8.4 X10e3 (1.5-7.1); NEUTROPHIL% 72.1 % (40-75); PLATELET COUNT 387 X10e3 (140-420); RED BLOOD COUNT 3.92 X10e (3.90-5.60); RED CELL DISTRIBUTION WIDTH 15.3 % (11.0-15.5); WHITE BLOOD COUNT 11.7 X10e3 (4.0-10.5)
[2016-06-07 10:55] LABS: POC - CKMB 2.1 ng/mL (0.0-7.9); POC - TROPONIN <0.05 ng/mL (<=0.05)
[2016-06-07 11:15] LABS: ALBUMIN SERUM 3.4 g/dL (3.5-5.0); ALKALINE PHOSPHATASE 69 U/L (32-92); ALT (SGPT) 13 U/L (10-40); AST (SGOT) 15 U/L (10-42); BILIRUBIN,TOTAL 0.3 mg/dL (0.2-2.0); BLOOD UREA NITROGEN 22 mg/dL (9-23); BUN/CREATININE RATIO 31.42; CARBON DIOXIDE 25 mmol/L (22-31); CHLORIDE 106 mmol/L (100-111); CREATININE SERUM 0.7 mg/dL (0.6-1.4); GLOM FILT RATE Estimated 105.5 mL/min (>60); GLUCOSE FASTING 129 mg/dL (70-110); POTASSIUM 4.2 mmol/L (3.5-5.1); SODIUM 140 mmol/L (135-145)
[2016-06-07 11:23] LABS: BILIRUBIN, DIRECT <0.1 mg/dL (0.0-0.2); BILIRUBIN,INDIRECT 0.2 mg/dL (0.0-0.9)
[2016-06-19] MEDS ORDERED: PROTONIX PO (13:00)
[2016-06-19] MEDS ORDERED: ALBUTEROL17 GM INH (13:00)
[2016-06-19] MEDS ORDERED: IBUPROFEN IB200 M1 PO (13:01)
== END 2016-06-07 12:40 | disposition home or self-care (01) ==
LOC: CED 11:34
PROVIDERS: Emergency Medicine
DX: J44.1 Chronic obstructive pulmonary disease with (acute) exacerbation (principal); I10 Essential (primary) hypertension; F41.9 Anxiety disorder, unspecified; F32.9 Major depressive disorder, single episode, unspecified; F17.200 Nicotine dependence, unspecified, uncomplicated
CPT/HCPCS: 36415; 71010; 80048; 80076; 82553; 84484; 85025; 93005; 94640; 99284

== ENCOUNTER 2016-06-12 15:30 | Inpatient (IN) | payer MEDICAID ==
--- NOTE | ~2016-06-12 | CO ---
Unit #: [id number] #: [id number] Patient: CESIA CASTRO [id number] [address] [place], [place] [address] [id number] I MR#: [id number] NAME: CESIA CASTRO. ROOM: 240 Age: 56 Sex: M Admission Date: 06/12/2016 : 1960 Attending Physician: Tano River M.D. Primary Care Physician: Bernardo Noyola M.D. Consultation Date: 06/13/2016 CONSULTATION REPORT REASON FOR CONSULTATION COPD. HISTORY OF PRESENT ILLNESS This 56-year-old gentleman with COPD who smoked up until his hospitalization last month. He was treated for COPD exacerbation, improved and was discharged on Symbicort among other medications. He quit smoking, did well until about two weeks ago. He had increased wheezing, sputum production and shortness of breath. There was no fever, no hemoptysis. He presented to the hospital with some chest discomfort, admitted to the cardiology service. PAST MEDICAL HISTORY Remarkable for: 1. COPD. 2. Coronary artery disease. 3. Gastroesophageal reflux disease. 4. Hypertension. 5. Hyperlipidemia. 6. Anxiety depression. PAST SURGICAL HISTORY 1. HOME MEDICATIONS He had been prescribed Symbicort but he ran out two weeks ago. He said insurance did not cover it but failed to call our office. He does have a blue inhaler for rescue. OTHER MEDICATIONS INCLUDE 1. Tylenol. 2. Aspirin. 3. Doxycycline. 4. Nitroglycerin. 5. Atenolol. 6. Neurontin. 7. Plavix. 8. Symbicort. 9. Celexa. 10. Desyrel. 11. Zestril. 12. Protonix. Please note that accuracy of this list is somewhat in question because Unit #: [id number] #: [id number] Patient: CESIA CASTRO Symbicort is listed. ALLERGIES No known medical allergies. SOCIAL HISTORY Quit smoking about a month ago. FAMILY HISTORY No familial lung disease. REVIEW OF SYSTEMS Had some chest discomfort on the left side but he thought that was secondary to the way he slept. It currently has resolved. No hemoptysis, pleurisy, hematuria, dysuria, difficulty swallowing, abdominal pain, leg pain of unusual character, he says always have "sciatica." Further review of systems negative. PHYSICAL EXAMINATION VITAL SIGNS: Afebrile, pulse 65, respiratory rate 18, blood pressure 145/84. 5 feet 10 inches, 174 pounds. GENERAL: Patient is in no acute distress. Somewhat flat affect and Psychiatry is seeing. HEENT: Pupils are equal, round, and reactive to light. Sclerae anicteric. Head atraumatic. NECK: Supple. No supraclavicular or cervical adenopathy appreciated. LUNGS: Rare scattered wheeze. Mildly prolonged expiratory phase. Decreased breath sounds. No consolidation. HEART: Distant heart tones. Regular rate and rhythm. No pathologic murmur, rub or gallop. ABDOMEN: Soft, nontender. No hepatomegaly or rebound. EXTREMITIES: No clubbing, cyanosis or edema. No calf tenderness. SKIN: Warm and dry without rash or diaphoresis. NEUROLOGIC: Grossly intact, no focal muscle or sensory deficits. DIAGNOSTIC STUDIES LABORATORY: BUN 26, creatinine 1.1. BNP 69. Cardiac enzymes negative. White blood cell count 20.5, hemoglobin 12, platelet count 548. Tox screen in April was positive for amphetamines. Sputum in March normal ginny. IMAGING: Chest x-ray hyperinflation. No acute infiltrates. CARDIOVASCULAR: EKG: Copy of an EKG reveals P pulmonale. IMPRESSION 1. Acute exacerbation of chronic obstructive pulmonary disease. 2. Recent tobacco cessation. 3. Acute bronchitis. 4. Variety of medical problems listed above. PLAN I have congratulated him on nonsmoking and have encouraged future success. His noncompliance with his Symbicort may have contributed to his rehospitalization. We will try different controlling agent at discharge but I have asked him if he has any problems to call the office. We will adjust his antibiotics for bronchitis. Try to check a sputum for Gram Unit #: [id number] #: [id number] Patient: CESIA CASTRO stain and culture. Thank you very much for allowing me to participate in the care of Mr. Castro. Dictated by... Juan Francisco Richter M.D. BRANNON/fara TD: 06/13/2016 21:21 JOB #: [id number] CONSULTATION REPORT Page 1 of 1 X Juan Francisco Richter MD CONSULTATION REPORT
--- NOTE | ~2016-06-12 | DS ---
Unit #: [id number] #: [id number] Patient: CESIA CASTRO [id number] [address] [address] [id number] I MR#: [id number] NAME: CESIA CASTRO. ROOM: 240 Age: 56 Sex: M Admission Date: 06/12/2016 : 1960 Discharge Date: 06/15/2016 Attending Physician: Tano River M.D. Primary Care Physician: Bernardo Noyola M.D. DISCHARGE SUMMARY DISCHARGE DIAGNOSES 1. Acute exacerbation of chronic obstructive pulmonary disease. 2. Acute bronchitis. 3. Anxiety. 4. History of coronary artery disease with history of bare-metal stent to the proximal and distal right coronary artery 04/2011. 5. Angioplasty with drug-eluting stents to the mid right coronary artery, ramus intermedius and distal right coronary artery with plain old balloon angioplasty to the first right posterior left ventricular branch 04/30/2016. 6. Hypertension. 7. Hyperlipidemia. 8. History of obstructive sleep apnea. DISCHARGE MEDICATIONS 1. Dulera 200/5 mcg 2 puffs b.i.d. 2. Lopressor 25 mg b.i.d. 3. Lipitor 40 mg q.h.s. 4. Lisinopril 20 mg q.h.s. 5. Aspirin 81 mg daily. 6. Albuterol sulfate 2 puffs inhaled daily p.r.n. 7. Acetaminophen 650 mg q.6 hours p.r.n. 8. Spiriva 18 mcg 1 inhalation daily. 9. Neurontin 300 mg t.i.d. 10. Celexa 20 mg q.h.s. 11. Desyrel 100 mg q.h.s. 12. Vistaril 25 mg t.i.d. 13. Plavix 75 mg daily. 14. Protonix 40 mg daily. 15. Nitroglycerin 0.4 mg sublingual q.5 minutes x3 p.r.n. chest pain. HOSPITAL COURSE This is a 56-year-old white male who presented to the office for a scheduled appointment; however, the patient was noted to be short of breath and wheezing with a cough. He was subsequently admitted to the hospital for COPD exacerbation and acute bronchitis. He was started on oral Levaquin and IV steroids. Dr. Richter was asked to see the patient. Mini-Neb treatments were ordered and Symbicort was continued. Levaquin was eventually discontinued. He was started on Zithromax IV. There was institution of Dulera. He was eventually weaned off of IV steroids and was transitioned to oral. His respiratory status improved. Because of the patient's history of anxiety, Dr. Terry was asked to see Unit #: [id number] #: [id number] Patient: CESIA CASTRO. He was started on trazodone, Celexa and Vistaril. Dr. Terry felt the patient should be seen at [facility] after discharge for continued supportive psychotherapy and psychoeducation. His heart rate and blood pressure remained stable throughout his stay. There was no evidence of any acute ischemic changes. He was continued on dual antiplatelet therapy with aspirin and Plavix. He is stable for discharge today. ASSESSMENT VITAL SIGNS: Blood pressure 132/67, heart rate 93, temperature 98.1. CHEST: Clear to auscultation. HEART: S1, S2 with regular rate and rhythm. ABDOMEN: Soft. Bowel sounds are present. EXTREMITIES: Without leg edema. SKIN: Warm and dry. DIAGNOSTIC STUDIES LABORATORY STUDIES: Glucose 126, BUN 26, creatinine 0.5, sodium 137, potassium 4.5. White count 23.4, hemoglobin 11.4, hematocrit 36.5, platelet count 538. CONSULTATIONS 1. Dr. Terry, psychiatry. 2. Dr. Richter, pulmonology. DISCHARGE INSTRUCTIONS 1. The patient will be discharged home today. 2. Follow up with Dr. River in 3 months. He will need to call for an appointment. 3. Follow up with Dr. Richter in 1 month. 4. Follow up with Dr. Terry as outpatient at [facility] for anxiety. 5. The patient states he had no prescriptions for any of his medications. All prescriptions have been written with the exception of gabapentin. Dual antiplatelet therapy will be needed for at least one year. The patient has been educated to call our office so he will not run out of Plavix prior to the one year. Dictated by... Josh Ramos A.P.R.NSandrita for S. Doron Mayer M.D. BREANNA/kimberley TD: 06/16/2016 08:07 JOB #: [id number] DISCHARGE SUMMARY Page 1 of 1 X Josh Ramos APRN DISCHARGE SUMMARY
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
--- NOTE | ~2016-06-12 | CR63 ---
[facility] A Service [facility] RADIOLOGY TEXT RESULTS PATIENT: CESIA CASTRO LOCATION: [facility] : 60 UNIT #: [id number] AGE: [address]: Tano River MD SEX: M ORDER DR: [id number] [address] [address] [id number] I MR#: [id number] Acc #: [id number] NAME: CEISA CASTRO. : 1960 SEX: M STUDY DATE/TIME: 06/12/2016 16:51 UNIT: [facility] ROOM: 240 STUDY DESCRIPTION: CR Chest 2 View Attending Physician: Tano River M.D. Ordering Physician: Tano River M.D. Primary Care Physician: Bernardo Noyola M.D. MEDICAL IMAGING REPORT This report is preliminary unless electronic signature is present EXAM Chest x-ray HISTORY Emphysema with cough and shortness breath for the past 5 days. TECHNIQUE 2 views of the chest were obtained. COMPARISON 06/07/2016 FINDINGS 2 views of the chest again show emphysematous lungs. No new infiltrates are seen. The heart and mediastinum are stable with normal heart size. Vascular markings are normal. IMPRESSION Emphysema. The lungs are clear. No significant change seen from previous exam. Dictated by... Coy Mendez M.D. THIS IS AN ELECTRONICALLY VERIFIED REPORT Coy Mendez M.D. at 06/12/2016 10:16 PM MALATHI/shweta TD: 06/12/2016 17:20 JOB #: [id number] MEDICAL IMAGING REPORT [facility] A Service [facility] RADIOLOGY TEXT RESULTS PATIENT: CESIA CASTRO LOCATION: [facility] : 60 UNIT #: [id number] AGE: [address]: Tano River MD SEX: M ORDER DR: Page 1 of 1 COPY
--- NOTE | ~2016-06-12 | CO ---
Unit #: [id number] #: [id number] Patient: MAGDI CASTRO [id number] [facility] [address] [facility]. [place], [place] [address] [id number] I MR#: [id number] NAME: MAGDI CASTRO. ROOM: 240 Age: 56 Sex: M Admission Date: 06/12/2016 : 1960 Attending Physician: Tano River M.D. Primary Care Physician: Bernardo Noyola M.D. Consultation Date: 06/14/2016 CONSULTATION REPORT REASON FOR CONSULTATION Followup. DISCUSSION Mr. Magdi Chicas is a 56-year-old male, seen on 06/14/2016 in room 240, bed 1 at [facility]. The patient reported still having problem with the anxiety, depression, trouble sleeping. Denied any suicidal or homicidal ideation. Denied any psychotic symptom. The patient is lying comfortably in bed, but still very very anxious. Reports that he is getting medication for breathing currently on Solu-Medrol which may be making his anxiety and depression much worse. The patient reported last night he did not sleep, medication did not help much. REVIEW OF SYSTEMS Complete review of systems unremarkable except as mentioned above. MENTAL STATUS EXAMINATION The patient's vital signs; temperature 98.1, pulse 93, respiratory rate 20, blood pressure 174/88, oxygen saturation 97%. General appearance, the patient dressed casually. Attention span and concentration, fair. Speech, regular rate and somewhat rapid. Oriented in time, place, and person. Mood and affect were sad, dysphoric, anxious. Thought process, coherent. Thought content, the patient denied any thoughts of harming self or others. Recent and remote memory, fair. Language, able to name object and repeat phrases. Fund of knowledge, fair. Insight and judgment, fair to slightly impaired. DIAGNOSES Psychiatric: Major depressive disorder, recurrent, severe; anxiety disorder, not otherwise specified. ASSESSMENT AND PLAN 1. Supportive psychotherapy and psychoeducation provided to the patient. 2. Educated about benefits and side effects of medication and course and prognosis of illness. 3. Advised to continue with current medications with a plan to add Zyprexa 10 mg at bedtime for mood stabilization, Desyrel increased to 200 mg at bedtime, and Vistaril increased to 50 mg t.i.d. We will monitor for side effects. Continue with inpatient programing. Continue with the inpatient treatment. Please feel free to call if any questions, telephone #[phone]. Dictated by... Unit #: [id number] #: [id number] Patient: MAGDI CASTRO M.D. SZC/florecita TD: 06/16/2016 00:44 JOB #: [id number] CONSULTATION REPORT Page 1 of 1 X Igor Terry MD CONSULTATION REPORT
--- NOTE | ~2016-06-12 | CO ---
Unit #: [id number] #: [id number] Patient: MAGDI CASTRO [id number] [facility] [address] [facility]. [place], [place] [address] [id number] I MR#: [id number] NAME: MAGDI CASTRO. ROOM: 240 Age: 56 Sex: M Admission Date: 06/12/2016 : 1960 Attending Physician: Tano River M.D. Primary Care Physician: Bernardo Noyola M.D. Consultation Date: 06/13/2016 CONSULTATION REPORT REASON FOR CONSULTATION Depression and anxiety. HISTORY OF PRESENT ILLNESS Mr. Magdi Chicas is a 56-year-old male, seen on room 240, bed 1, on 06/13/2016 at [facility]. The patient reported multiple stressors, currently homeless, feeling of hopelessness, worthlessness, sad, depressed, anxious, and trouble sleeping. The patient currently on medication, Solu-Medrol. Reported anxiety is much worse here. The patient reported one admission at [facility] in 2016 and diagnosed with major depressive disorder. The patient at this time denied any suicidal or homicidal ideation or any psychotic symptoms. PAST PSYCHIATRIC HISTORY Remarkable for history of previous treatment at [facility]. No history of any suicide attempt. MEDICAL HISTORY Remarkable for history of COPD, CAD, GERD, hypertension, depression, anxiety, and hyperlipidemia. MEDICATION HISTORY Please refer to MAR. FAMILY HISTORY AND SOCIAL HISTORY The patient reports poor support system. No history of any abuse. No history of any substance abuse. REVIEW OF SYSTEMS Complete review of systems is remarkable for severe anxiety and depression. MENTAL STATUS EXAMINATION Vital signs; temperature 97.8, heart rate 91, respiratory rate 18, and blood pressure 139/77. General appearance; the patient dressed casually. Attention span and concentration, fair. Speech, regular rate and coherent. Oriented in time, place, and person. Mood and affect, sad and depressed. Thought process, coherent. Thought content, the patient denied any thoughts of harming self or others or any psychotic symptom, but feeling sad, depressed, feeling of hopelessness and worthlessness. Recent and remote memory, poor. Language, fair. Fund of knowledge, fair. Insight and judgment, fair to slightly impaired. DIAGNOSES Psychiatric: Major depressive disorder, recurrent, severe, F33.2 and Unit #: [id number] #: [id number] Patient: MAGDI CASTRO anxiety disorder, not otherwise specified, F40.01. Secondary diagnosis: Deferred. Medical diagnosis: Please refer to H and P. Stressors: Psychosocial stressors. ASSESSMENT/PLAN 1. Supportive psychotherapy and psychoeducation provided to the patient. 2. Educated about benefits and side effects of medication and course and prognosis of illness. Advised Celexa 20 mg daily, Vistaril 25 mg t.i.d., and trazodone 100 mg at bedtime. If needed, we will make further adjustment of medication. Please feel free to call if any questions, telephone #[phone]. Dictated by... Alfredito Das/florecita TD: 06/13/2016 18:13 JOB #: [id number] CONSULTATION REPORT Page 1 of 1 X Igor Terry MD X CONSULTATION REPORT
--- NOTE | ~2016-06-12 | A ---
[facility] DATE: 06/13/16 Patient: CESIA CASTRO Physician: RJ Address: NO PERMANENT ADDRESS Room/Bed: [address] [place] [address], Zip: [place] [address] Admit Date: 06/12/16 Date of : 60 Height: 5 10 Weight: 174 79.37 NUTRITIONAL ASSESSMENT: REASON: 3 NUTRITION RISK PT RE: WEIGHT LOSS PT IS 56 Y.O. MALE ADMITTED FOR COPD PMH: [facility] PER CHART/PAST NOTES: COPD, CAD, HTN, HLD, GERD, CELIA, POLYSUBSTANCE ABUSE Anthropometrics: 5'10", WT: 175# (80 KG), BMI: 25.1, 105%IBW Labs: GLU: 181, BUN: 26 Meds: NACL, SOLU-MEDROL, FERROUD GLUCONATE, PROTONIX I/O & Bowel function: 880/2 Skin Integrity: NO KNOWN SKIN ISSUES Estimated Nutrition Needs: INCREASED NEEDS 2' WEIGHT LOSS NOTED Assessment: CHART REVIEWED AND EVENTS NOTED. PT SEEN FOR WEIGHT LOSS. RD SPOKE TO PT AT BEDSIDE. PT REPORTS "OK" INTAKE AND APPETITE, NOTING NO C/O N/V/D. PT REPORTS LOSING ~10-15# PAST FEW MONTHS. PT UNABLE TO RECALL CAUSE OF WEIGHT LOSS BUT NOTES BEING HOMELESS IS A ONE REASON. PT REPORTS LOSING HIS JOB PAST YEAR WELL. THIS RD ENCOURAGED ADEQUATE KCAL AND PROTEIN INTAKE, PT AGREED TO ENSURE SHAKES BID W/MEALS. RD TO RECOMMEND POULTRY TRIMMER SEE PT REGARDING PLACEMENT UPON DISCHARGE. PT REPORTED NO DIET QUESTIONS AT THIS TIME. RD TO FOLLOW. Dx: WEIGHT LOSS R/T ?FOOD INSECURITY, JOB LOSS AEB PT HOMELESS, PT REPORT ABOVE ~10-15# WEIGHT LOSS IN PAST FEW MONTHS. Intervention: 1. REGULAR DIET 2. ENSURE SHAKES BID Monitoring, Evaluation and Goals: 1. ORAL INTAKE; TOLERATE >50% OF MEALS AND SUPPLEMENTS 2. LABS; WNL 3. WEIGHTS; PREVENT FURTHER UNINTENTIONAL WEIGHT LOSS MONITOR: -PO INTAKE/APPETITE -WEIGHTS [facility] DATE: 06/13/16 Patient: CESIA CASTRO Physician: RJ Address: NO PERMANENT ADDRESS Room/Bed: [facility] [place] [address], Zip: [place] [address] Admit Date: 06/12/16 Date of : [birth year] Height: 5 10 Weight: 174 79.37 Recommendations: 1. ORDER ENSURE SHAKES BID W/MEALS 2. CONTINUE TO ENCOURAGE ADEQUATE KCAL AND PROTEIN INTAKE -RECOMMEND TO CHANGE CURRENT DIET ORDER TO 2' PMH 3. PT WOULD BENEFIT FROM RECEIVING INFORMATION FROM POULTRY TRIMMER AND/OR ANALYTICS DIRECTOR REGARDING PLACEMENT WELL FOOD SECURITY SUCH FOOD STAMPS, UPON DISCHARGE RD WILL F/U PER PROTOCOL PT IS MILD/MODERATLEY COMPROMISED Respectfully, OZIEL VENEGAS MS, RD, LD Food and Nutritional Services [facility] cc: client file
[2016-06-12 17:53] LABS: BASOPHIL# 0.2 X10e3 (0-0.3); EOSINOPHIL# 0.1 X10e3 (0-0.7); EOSINOPHIL% 0.4 % (0.0-7.0); LYMPHOCYTE# 4.1 X10e3 (1.0-3.5); LYMPHOCYTE% 20.1 % (17.0-45.0); MEAN CELL VOLUME 85.4 FL (83-96); MEAN CORPUSCULAR HEMOGLOBIN 26.9 PG (28-34); MEAN CORPUSCULAR HGB CONC 31.5 g/dL (30-36); MEAN PLATELET VOLUME 6.7 FL (6.5-11.5); MONOCYTE# 1.3 X10e3 (0-1.0); MONOCYTE% 6.1 % (3.0-12.0); NEUTROPHIL# 14.8 X10e3 (1.5-7.1); NEUTROPHIL% 72.4 % (40-75); PLATELET COUNT 548 X10e3 (140-420); RED BLOOD COUNT 4.45 X10e (3.90-5.60); RED CELL DISTRIBUTION WIDTH 15.2 % (11.0-15.5); WHITE BLOOD COUNT 20.5 X10e3 (4.0-10.5)
[2016-06-12 17:54] LABS: DIFF IND YES
[2016-06-12 18:14] LABS: ALBUMIN SERUM 3.7 g/dL (3.5-5.0); BILIRUBIN,TOTAL 0.3 mg/dL (0.2-2.0); BUN/CREATININE RATIO 23.63; CALCIUM SERUM 9.1 mg/dL (8.4-10.2); CREATININE SERUM 1.1 mg/dL (0.6-1.4); GLOM FILT RATE Estimated 74.7 mL/min (>60); POTASSIUM 3.7 mmol/L (3.5-5.1); PROTEIN TOTAL SERUM 7.5 g/dL (6.0-8.3)
[2016-06-12 18:35] LABS: PLATELET ESTIMATE INCREASED (NORMAL)
[2016-06-12 18:36] LABS: RBC NORMAL YES
[2016-06-14 06:03] LABS: HEMATOCRIT 35.6 % (38.0-50.0); HEMOGLOBIN 11.4 gm/dL (13.0-16.0); MEAN CELL VOLUME 85.5 FL (83-96); MEAN CORPUSCULAR HEMOGLOBIN 27.3 PG (28-34); MEAN PLATELET VOLUME 6.9 FL (6.5-11.5); RED BLOOD COUNT 4.16 X10e (3.90-5.60); RED CELL DISTRIBUTION WIDTH 15.1 % (11.0-15.5); WHITE BLOOD COUNT 23.4 X10e3 (4.0-10.5)
[2016-06-14 06:47] LABS: CALCIUM SERUM 9.3 mg/dL (8.4-10.2); CREATININE SERUM 0.5 mg/dL (0.6-1.4); GLOM FILT RATE Estimated 121.2 mL/min (>60); POTASSIUM 4.5 mmol/L (3.5-5.1)
[2016-06-15] MEDS ORDERED: SPIRIVA18 MCG INH (16:18)
[2016-06-15] MEDS ORDERED: VISTARIL PO (16:20)
[2016-06-15] MEDS ORDERED: METOPROLOL TAR25 MG PO (16:21)
[2016-06-15] MEDS ORDERED: LIPITOR40 MG PO (16:22)
[2016-06-15] MEDS ORDERED: DULERA 200 MCG/13 GM INH (16:22)
[2016-06-19] MEDS ORDERED: PROTONIX PO (13:00)
[2016-06-19] MEDS ORDERED: ALBUTEROL17 GM INH (13:00)
[2016-06-19] MEDS ORDERED: IBUPROFEN IB200 M1 PO (13:01)
== END 2016-06-15 18:18 | disposition home or self-care (01) | DRG 191 ==
LOC: C2A 15:30
PROVIDERS: Internal Medicine; Internal Medicine Cardiovascular Disease
DX: J44.0 Chronic obstructive pulmonary disease with (acute) lower respiratory infection (principal); F33.2 Major depressive disorder, recurrent severe without psychotic features; J20.9 Acute bronchitis, unspecified; J44.1 Chronic obstructive pulmonary disease with (acute) exacerbation; F41.9 Anxiety disorder, unspecified; I25.10 Atherosclerotic heart disease of native coronary artery without angina pectoris; I10 Essential (primary) hypertension; K21.9 Gastro-esophageal reflux disease without esophagitis; G47.33 Obstructive sleep apnea (adult) (pediatric); Z95.5 Presence of coronary angioplasty implant and graft; Z79.82 Long term (current) use of aspirin; Z79.02 Long term (current) use of antithrombotics/antiplatelets; Z79.51 Long term (current) use of inhaled steroids; Z79.899 Other long term (current) drug therapy; Z87.891 Personal history of nicotine dependence; Z91.14 Patient's other noncompliance with medication regimen
CPT/HCPCS: 71020; 80048; 80053; 83880; 85025; 85027; 94640; 94664; 94760; J0456; J2920; J2930

== ENCOUNTER 2016-06-19 14:36 | Inpatient (IN) | payer MEDICAID ==
--- NOTE | ~2016-06-19 | CO ---
Unit #: [id number] #: [id number] Patient: CESIA CASTRO [id number] [place], [place] [address] [id number] I MR#: [id number] NAME: CESIA CASTRO. ROOM: 318 Age: 56 Sex: M Admission Date: 06/19/2016 : 1960 Attending Physician: Nahum Edmond M.D. Primary Care Physician: Bernardo Noyola M.D. Consultation Date: 06/22/2016 CONSULTATION REPORT REASON FOR CONSULTATION Mr. Castro is a 56-year-old white male who is well known to our service and recently hospitalized for acute exacerbation of chronic obstructive pulmonary disease. Over the past several days, he has had increasing cough, sputum production, and wheeze, but no high fevers. Denies hemoptysis, hoarseness, or weight loss. PAST MEDICAL HISTORY Significant for COPD, coronary artery disease, gastric reflux, hypertension, hyperlipidemia, anxiety, and depression. HOME MEDICATIONS Include Symbicort, Tylenol, aspirin, doxycycline, nitroglycerin, atenolol, Neurontin, Plavix, Celexa, Desyrel, Zestril, and Protonix. ALLERGIES Negative. SOCIAL HISTORY Significant for quit smoking approximately 1 month ago. FAMILY HISTORY Negative for lung disease. REVIEW OF SYSTEMS Significant for great deal of nervousness and tremor. He denies chest pain, syncope, nausea, vomiting, diarrhea, but he has chronic sciatica. PHYSICAL EXAMINATION GENERAL: He is well-developed, well-nourished white male, in no acute distress. VITAL SIGNS: His temperature 97.4, pulse 107, respirations 20 and nonlabored, saturations were 99% on 3 L. HEENT: Pupils are round and reactive to light. Sclerae nonicteric. Nose and oropharynx showed no significant lesions. NECK: There is no supraclavicular or cervical adenopathy. CHEST: There is increased AP diameter of the chest, which shows diminished breath sounds and few expiratory wheezes. HEART: Sounds are somewhat distant, but there is normal S1, S2. ABDOMEN: Soft, nontender. No enlargement of liver or spleen. SKIN: Free of rashes. JOINTS: Were not inflamed. EXTREMITIES: There was no clubbing, cyanosis, or edema. NEUROLOGIC: He is awake, alert, and oriented. Showed no gross motor Unit #: [id number] #: [id number] Patient: CESIA CASTRO sensory defects. There was a marked tremor at rest probably secondary to beta-agonist and IV Solu-Medrol. DIAGNOSTIC STUDIES LABORATORY RESULTS: Showed pH 7.37, CO2 of 50, O2 of 72. Glucose 162, BUN of 23, creatinine 0.5, sodium 136, potassium 4.8, chloride 100, CO2 of 28. IMAGING STUDIES: CT angiogram of the chest showed no acute findings. There was no evidence of pulmonary embolus. There is mild multifocal subsegmental atelectasis on both lung bases, but no significant pneumonia was seen. Mild dilatation of the ascending thoracic aorta measuring 4.[address] of 03/31/2016. IMPRESSION Acute exacerbation of chronic obstructive pulmonary disease. His sputum culture showed few positive cocci, but is negative for culture after 2 days. We will plan on reducing his prednisone and changing to p.o. antibiotics from triple coverage. We would suggest possible pulmonary rehab on discharge. Thank you very much for allowing us to participate in his care. Dictated by... Alfredito Booth/florecita TD: 06/23/2016 01:38 JOB #: [id number] CONSULTATION REPORT Page 1 of 1 X Teja Jackson MD X CONSULTATION REPORT
--- NOTE | ~2016-06-19 | DS ---
Unit #: [id number] #: [id number] Patient: CESIA CASTRO [id number] [address] [id number] I MR#: [id number] NAME: CESIA CASTRO. ROOM: 318 Age: 56 Sex: M Admission Date: 06/19/2016 : 1960 Discharge Date: 06/23/2016 Attending Physician: Nahum Edmond M.D. Primary Care Physician: Bernardo Noyola M.D. DISCHARGE SUMMARY DISCHARGE DIAGNOSES 1. Acute hypoxic respiratory failure. 2. Hypertension. 3. Pneumonia. 4. Chronic obstructive pulmonary disease exacerbation. 5. Anxiety. 6. Sepsis. HOSPITAL COURSE The patient is a 56-year-old male admitted to [facility] emergency department secondary to acute hypoxic respiratory failure. The patient was initially thought to have a healthcare-associated pneumonia and was started on vancomycin and Zosyn. Ultimately, his sputum cultures came back growing normal respiratory ginny and his antibiotics were switched to Levaquin as a result. He was thought to also be in acute exacerbation of COPD and was started on breathing treatments and steroids as well. At this time, the patient's oxygen requirements are at baseline and he is ambulating without shortness of breath. Therefore, he is felt safe and ready for discharge to rehab. DISCHARGE MEDICATIONS 1. Ventolin one puff q.4 h. as needed. 2. Acetaminophen 650 p.o. q.6 h. as needed for mild to moderate pain. 3. Spiriva one cap inhaled daily. 4. Neurontin 300 mg p.o. t.i.d. 5. Celexa 20 mg p.o. h.s. 6. Desyrel 100 mg p.o. h.s. 7. Vistaril 25 mg p.o. t.i.d. 8. Dulera 200/5 two puffs b.i.d. 9. Toprol tartrate 25 mg p.o. b.i.d. 10. Lipitor 40 mg p.o. h.s. 11. Zestril 20 mg p.o. daily. 12. Aspirin 81 mg daily. 13. Ibuprofen 200 mg p.o. q.4 h. p.r.n. 14. Ativan 0.1 mg p.o. q.8 h. p.r.n. anxiety. 15. Plavix 75 mg daily. 16. Protonix 40 mg daily. 17. Nitroglycerin 0.4 mg sublingual as needed. FOLLOWUP Patient should follow up with his primary care provider Dr. Noyola upon discharge from rehab. Unit #: [id number] #: [id number] Patient: CESIA CASTRO Dictated by... Alfredito Armenta/fara TD: 06/23/2016 17:52 JOB #: [id number] DISCHARGE SUMMARY Page 1 of 1 X Chino Encarnacion MD X DISCHARGE SUMMARY
--- NOTE | ~2016-06-19 | EKG ---
PATIENT: CESIA CASTRO UNIT #: [id number] Ventricular Rate: 85 BPM Atrial Rate: 85 BPM P-R Interval: 144 ms QRS Duration: 88 ms Q-T Interval: 356 ms QTC Calculation(Bezet): 423 ms P Mora: 78 degrees Calculated R Mora: -48 degrees Calculated T Mora: 49 degrees Diagnosis Line: Normal sinus rhythm Diagnosis Line: Left anterior fascicular block Diagnosis Line: Abnormal ECG Diagnosis Line: When compared with ECG of 07-JUN-2016 10:35, Diagnosis Line: No significant change was found Diagnosis Line: Confirmed by JA MARTINEZ MD ([id number]) on Diagnosis Line: 06/20/2016 11:06:22 PM INTERPRETING MD: DAX
--- NOTE | ~2016-06-19 | CT16 ---
[facility] A Service of [facility] RADIOLOGY TEXT RESULTS PATIENT: CESIA CASTRO LOCATION: [facility] 318- : 60 UNIT #: [id number] AGE: [address]: Nahum Edmond MD SEX: M ORDER DR: [id number] [facility]. [place], [place] [address] [id number] I MR#: [id number] Acc #: [id number] NAME: CESIA CASTRO. : 1960 SEX: M STUDY DATE/TIME: 06/21/2016 15:45 UNIT: A PCU ROOM: 318 STUDY DESCRIPTION: CT Angio Chest for PE Attending Physician: Nahum Edmond M.D. Ordering Physician: Nahum Edmond M.D. Primary Care Physician: Bernardo Noyola M.D. MEDICAL IMAGING REPORT This report is preliminary unless electronic signature is present EXAM CT angiogram chest with IV contrast HISTORY Shortness of air for [address] exam was performed with one or more of the following radiation dose reduction techniques: automatic control, adjustment of mA and/or kV according to patient size, and iterative reconstruction. FINDINGS IV contrast enhanced CT angiogram of the chest was performed with 3-D reconstructions. There is mild multifocal subsegmental atelectasis in both lung bases. No focal airspace infiltrates. No pleural effusions. No adenopathy. Mild dilatation of the ascending thoracic aorta measuring approximately 4.2 cm in diameter, with evaluation partly limited by motion. This is similar to CT chest 03/31/2016. The remainder of the thoracic aorta is normal in caliber. No pulmonary embolus. No pulmonary arterial dilatation. IMPRESSION 1. No acute findings. 2. No pulmonary embolus. 3. Mild multifocal subsegmental atelectasis in both lung bases. 4. Mild dilatation of the ascending thoracic aorta measuring approximately 4.2 cm in diameter, similar to CT chest 03/31/2016. Dictated by... Santos Jay M.D. [facility] A Service of [facility] RADIOLOGY TEXT RESULTS PATIENT: CESIA CASTRO LOCATION: [facility] 318-01 : [birth year] UNIT #: [id number] AGE: [address]: Nahum Edmond MD SEX: M ORDER DR: THIS IS AN ELECTRONICALLY VERIFIED REPORT Santos Jay M.D. at 06/21/2016 11:46 PM DFL/rnmarylou TD: 06/21/2016 21:49 JOB #: [id number] MEDICAL IMAGING REPORT Page 1 of 1 COPY
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
--- NOTE | ~2016-06-19 | CR63 ---
[facility] A Service of [facility] RADIOLOGY TEXT RESULTS PATIENT: CESIA CASTRO LOCATION: [facility] 318- : 60 UNIT #: [id number] AGE: [address]: Nahum Edmond MD SEX: M ORDER DR: [id number] [facility] [address] [place], [place] [address] [id number] I MR#: [id number] Acc #: [id number] NAME: CESIA CASTRO. : 1960 SEX: M STUDY DATE/TIME: 06/21/2016 15:29 UNIT: [address] ROOM: [facility] STUDY DESCRIPTION: CR Chest 2 View Attending Physician: Nahum Edmond M.D. Ordering Physician: Teja Jackson M.D. Primary Care Physician: Bernardo Noyola M.D. MEDICAL IMAGING REPORT This report is preliminary unless electronic signature is present EXAM 2 views of the chest. COMPARISON June 19, 2016, June 12, 2016 and June 07, 2016. INDICATION 56-year-old male with chronic dyspnea and cough and history of COPD. Worsening cough and dyspnea since 2 weeks ago. Sepsis. FINDINGS Cardiomediastinal silhouette is within normal limits. There is no pleural effusion or pneumothorax. There are plate-like opacities in the left lung base in keeping with atelectasis. Mild multilevel spondylosis of the thoracic spine. No evidence of pneumonia. IMPRESSION Minimal left basilar atelectasis. Otherwise, normal exam. Dictated by... Jose De Jesus Aguilera M.D. THIS IS AN ELECTRONICALLY VERIFIED REPORT Jose De Jesus Aguilera M.D. at 06/24/2016 3:14 PM Feliberto TD: 06/21/2016 16:58 JOB #: [id number] MEDICAL IMAGING REPORT Page 1 of 1 COPY
--- NOTE | ~2016-06-19 | CR72 ---
[facility] A Service of [facility] RADIOLOGY TEXT RESULTS PATIENT: CESIA CASTRO LOCATION: C3A 318-01 : 60 UNIT #: [id number] AGE: [address]: Nahum Edmond MD SEX: M ORDER DR: [id number] [facility] [address] [facility]. [place], [place] [address] [id number] E MR#: [id number] Acc #: [id number] NAME: CESIA CASTRO. : 1960 SEX: M STUDY DATE/TIME: 06/19/2016 13:46 UNIT: TERELL ROOM: STUDY DESCRIPTION: CR Chest Single View Portable Attending Physician: Mert Corrigan M.D. Ordering Physician: Mert Corrigan M.D. Primary Care Physician: Bernardo Noyola M.D. MEDICAL IMAGING REPORT This report is preliminary unless electronic signature is present EXAM Frontal chest 06/19/2016 INDICATIONS Cough and shortness of air in a 56-year-old male. TECHNIQUE Frontal chest compared 06/12/2016. FINDINGS Cardiac silhouette is within normal limits. The vascularity is normal. There is no pleural effusion. There is some minimal atelectasis or faint infiltrate in the right lung base. Lungs otherwise appear clear. No pneumothorax. IMPRESSION 1. There is faint atelectasis or infiltrate in the right lung base, new compared to the prior study. Lungs are otherwise clear. No effusion or pneumothorax. Dictated by... Edwar Ralph M.D. THIS IS AN ELECTRONICALLY VERIFIED REPORT Edwar Ralph M.D. at 06/20/2016 8:10 AM DELICIA/cash TD: 06/19/2016 15:36 JOB #: [id number] [facility] A Service of [facility] RADIOLOGY TEXT RESULTS PATIENT: CESIA CASTRO LOCATION: [facility] 318-01 : 60 UNIT #: [id number] AGE: [address]: Nahum Edmond MD SEX: M ORDER DR: MEDICAL IMAGING REPORT Page 1 of 1 COPY
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
[2016-06-19 14:08] LABS: POC - CKMB <1.0 ng/mL (0.0-7.9); POC - TROPONIN <0.05 ng/mL (<=0.05)
[2016-06-19 14:13] LABS: BASOPHIL# 0.2 X10e3 (0-0.3); EOSINOPHIL# 0.4 X10e3 (0-0.7); EOSINOPHIL% 1.4 % (0.0-7.0); HEMATOCRIT 33.6 % (38.0-50.0); LYMPHOCYTE# 3.7 X10e3 (1.0-3.5); LYMPHOCYTE% 14.7 % (17.0-45.0); MEAN CELL VOLUME 85.8 FL (83-96); MEAN CORPUSCULAR HEMOGLOBIN 28.2 PG (28-34); MEAN CORPUSCULAR HGB CONC 32.9 g/dL (30-36); MEAN PLATELET VOLUME 6.8 FL (6.5-11.5); MONOCYTE# 2.1 X10e3 (0-1.0); MONOCYTE% 8.4 % (3.0-12.0); NEUTROPHIL% 74.5 % (40-75); PLATELET COUNT 449 X10e3 (140-420); RED BLOOD COUNT 3.91 X10e (3.90-5.60); RED CELL DISTRIBUTION WIDTH 15.5 % (11.0-15.5); WHITE BLOOD COUNT 25.5 X10e3 (4.0-10.5)
[2016-06-19 14:18] LABS: INR 0.9; PROTHROMBIN TIME (PATIENT) 9.8 SECONDS (9.6-11.5)
[2016-06-19 14:23] LABS: DIFF IND YES
[2016-06-19 14:28] LABS: ALBUMIN SERUM 3.3 g/dL (3.5-5.0); BILIRUBIN, DIRECT 0.1 mg/dL (0.0-0.2); BILIRUBIN,INDIRECT 0.4 mg/dL (0.0-0.9); BILIRUBIN,TOTAL 0.5 mg/dL (0.2-2.0); BUN/CREATININE RATIO 56.66; CALCIUM SERUM 8.7 mg/dL (8.4-10.2); CREATININE SERUM 0.6 mg/dL (0.6-1.4); GLOM FILT RATE Estimated 112.4 mL/min (>60); POTASSIUM 4.7 mmol/L (3.5-5.1); PROTEIN TOTAL SERUM 6.6 g/dL (6.0-8.3)
[~2016-06-19 14:36] MED LIST changes: +DULERA 200 MCG/13 GM INH; +IBUPROFEN IB200 M1 PO; +LIPITOR40 MG PO; +SPIRIVA18 MCG INH
[2016-06-19 14:42] LABS: PLATELET ESTIMATE INCREASED (NORMAL)
[2016-06-19 14:43] LABS: STOMATOCYTE PRESENT
[2016-06-19 15:27] LABS: ARTERIAL BLD GAS O2 SATURATION 91.3 % (90.0-100.0); ARTERIAL BLOOD GAS CARBOXY HB 1.7 %sat (0.0-9.0); ARTERIAL BLOOD GAS HCO3 29.3 mmol/L; ARTERIAL BLOOD GAS PCO2 50.2 mmHg (35.0-45.0); ARTERIAL BLOOD GAS PO2 72.2 mmHg (80.0-100); ARTERIAL BLOOD GAS pH 7.374 (7.350-7.450); ARTERIAL DRAW? YES
[2016-06-19 15:28] LABS: ARTERIAL BLOOD GAS ALLEN TEST NORMAL; ARTERIAL BLOOD GAS ART SITE RIGHT RADIAL; ARTERIAL BLOOD GAS DELIVERY NASAL CANNULA
[2016-06-19 18:02] LABS: CK TOTAL 17 IU/L (36-174)
[2016-06-19 18:24] LABS: AMPHETAMINE NEG (NEG); BARBITURATES NEG (NEG); BENZODIAZEPINES NEG (NEG); COCAINE NEG (NEG); MARIJUANA NEG (NEG); OPIATES POS (NEG); TRICYCLIC ANTIDEPRESSANTS NEG (NEG); U METHADONE NEG (NEG)
[2016-06-20 00:19] LABS: CK TOTAL 19 IU/L (36-174)
[2016-06-20 01:34] LABS: BASOPHIL# 0.1 X10e3 (0-0.3); BASOPHIL% 0.3 % (0-2.5); DIFF IND NO; HEMOGLOBIN 10.4 gm/dL (13.0-16.0); LYMPHOCYTE# 0.9 X10e3 (1.0-3.5); LYMPHOCYTE% 3.8 % (17.0-45.0); MEAN CELL VOLUME 86.8 FL (83-96); MEAN CORPUSCULAR HEMOGLOBIN 27.3 PG (28-34); MEAN CORPUSCULAR HGB CONC 31.4 g/dL (30-36); MEAN PLATELET VOLUME 6.9 FL (6.5-11.5); MONOCYTE# 0.2 X10e3 (0-1.0); MONOCYTE% 0.8 % (3.0-12.0); NEUTROPHIL# 21.8 X10e3 (1.5-7.1); NEUTROPHIL% 95.1 % (40-75); PLATELET COUNT 471 X10e3 (140-420); RED BLOOD COUNT 3.81 X10e (3.90-5.60); RED CELL DISTRIBUTION WIDTH 15.6 % (11.0-15.5); WHITE BLOOD COUNT 22.9 X10e3 (4.0-10.5)
[2016-06-20 01:52] LABS: ALBUMIN SERUM 3.4 g/dL (3.5-5.0); BILIRUBIN,TOTAL 0.5 mg/dL (0.2-2.0); BUN/CREATININE RATIO 38.57; CALCIUM SERUM 8.5 mg/dL (8.4-10.2); CREATININE SERUM 0.7 mg/dL (0.6-1.4); GLOM FILT RATE Estimated 105.5 mL/min (>60); POTASSIUM 4.5 mmol/L (3.5-5.1)
[2016-06-20 09:16] LABS: LEGIONELLA AG URINE NEG (NEG)
[2016-06-21 05:13] LABS: HEMATOCRIT 30.4 % (38.0-50.0); HEMOGLOBIN 9.6 gm/dL (13.0-16.0); MEAN CELL VOLUME 85.4 FL (83-96); MEAN CORPUSCULAR HGB CONC 31.6 g/dL (30-36); MEAN PLATELET VOLUME 6.8 FL (6.5-11.5); RED BLOOD COUNT 3.56 X10e (3.90-5.60); RED CELL DISTRIBUTION WIDTH 15.4 % (11.0-15.5); WHITE BLOOD COUNT 30.1 X10e3 (4.0-10.5)
[2016-06-21 06:13] LABS: BUN/CREATININE RATIO 32.85; CALCIUM SERUM 8.9 mg/dL (8.4-10.2); CREATININE SERUM 0.7 mg/dL (0.6-1.4); GLOM FILT RATE Estimated 105.5 mL/min (>60); POTASSIUM 4.6 mmol/L (3.5-5.1)
[2016-06-22 06:17] LABS: HEMATOCRIT 31.7 % (38.0-50.0); HEMOGLOBIN 10.1 gm/dL (13.0-16.0); MEAN CELL VOLUME 85.8 FL (83-96); MEAN CORPUSCULAR HEMOGLOBIN 27.3 PG (28-34); MEAN CORPUSCULAR HGB CONC 31.8 g/dL (30-36); MEAN PLATELET VOLUME 6.7 FL (6.5-11.5); RED BLOOD COUNT 3.69 X10e (3.90-5.60); RED CELL DISTRIBUTION WIDTH 15.7 % (11.0-15.5); WHITE BLOOD COUNT 26.8 X10e3 (4.0-10.5)
[2016-06-22 06:40] LABS: CREATININE SERUM 0.5 mg/dL (0.6-1.4); GLOM FILT RATE Estimated 121.2 mL/min (>60); POTASSIUM 4.8 mmol/L (3.5-5.1)
[2016-06-23 05:33] LABS: HEMATOCRIT 32.6 % (38.0-50.0); HEMOGLOBIN 10.2 gm/dL (13.0-16.0); MEAN CELL VOLUME 86.5 FL (83-96); MEAN CORPUSCULAR HGB CONC 31.2 g/dL (30-36); MEAN PLATELET VOLUME 6.6 FL (6.5-11.5); RED BLOOD COUNT 3.77 X10e (3.90-5.60); RED CELL DISTRIBUTION WIDTH 15.7 % (11.0-15.5); WHITE BLOOD COUNT 22.5 X10e3 (4.0-10.5)
[2016-06-23 07:04] LABS: CALCIUM SERUM 8.9 mg/dL (8.4-10.2); CREATININE SERUM 0.5 mg/dL (0.6-1.4); GLOM FILT RATE Estimated 121.2 mL/min (>60); POTASSIUM 4.3 mmol/L (3.5-5.1)
== END 2016-06-23 19:00 | DRG 189 ==
LOC: CED 14:36 → CEDOF 17:10 → C3A PCU 18:09
PROVIDERS: Emergency Medicine; Family Medicine; Internal Medicine
PROC: B32TYZZ Computerized Tomography (CT Scan) of Left Pulmonary Artery using Other Contrast (ICD-10-PCS; principal; 2016-06-21)
PROC: B32SYZZ Computerized Tomography (CT Scan) of Right Pulmonary Artery using Other Contrast (ICD-10-PCS; 2016-06-21)
DX: J96.01 Acute respiratory failure with hypoxia (principal); J18.9 Pneumonia, unspecified organism; J44.0 Chronic obstructive pulmonary disease with (acute) lower respiratory infection; J44.1 Chronic obstructive pulmonary disease with (acute) exacerbation; I10 Essential (primary) hypertension; E78.5 Hyperlipidemia, unspecified; F41.9 Anxiety disorder, unspecified; F17.210 Nicotine dependence, cigarettes, uncomplicated; Z71.6 Tobacco abuse counseling; G47.33 Obstructive sleep apnea (adult) (pediatric); F32.9 Major depressive disorder, single episode, unspecified; I25.10 Atherosclerotic heart disease of native coronary artery without angina pectoris; Z95.5 Presence of coronary angioplasty implant and graft; Z59.0 Homelessness
CPT/HCPCS: 36600; 70450; 71010; 71020; 71275; 80048; 80053; 80076; 80200; 80202; 80307; 82308; 82550; 82553; 82803; 83605; 84484; 85025; 85027; 85610; 87040; 87070; 87086; 87205; 87449; 87633; 87899; 93005; 94640; 94664; 94760; 96361; 96374; 96375; 97116; 97163; 97167; 97530; 97535; 99291; J2270; J2543; J2930; J3260; J3370; Q9967

== ENCOUNTER 2016-06-25 12:29 | Emergency (ER) | payer MEDICAID ==
--- NOTE | ~2016-06-25 | EKG ---
PATIENT: CESIA CASTRO UNIT #: [id number] Ventricular Rate: 72 BPM Atrial Rate: 72 BPM P-R Interval: 146 ms QRS Duration: 92 ms Q-T Interval: 388 ms QTC Calculation(Bezet): 424 ms P [place]: 37 degrees Calculated R [place]: -52 degrees Calculated T [place]: -9 degrees Diagnosis Line: Normal sinus rhythm Diagnosis Line: Left anterior fascicular block Diagnosis Line: Borderline ECG Diagnosis Line: No previous ECGs available Diagnosis Line: Confirmed by ANA LUJAN MD ([id number]) on 06/29/2016 Diagnosis Line: 3:49:40 PM INTERPRETING MD: TAI DENTON
[2016-06-25 12:54] LABS: URINE SOURCE CLEAN CATCH
[2016-06-25 12:58] LABS: URINE APPEARANCE CLOUDY; URINE BILIRUBIN NEG (NEG); URINE BLOOD NEG (NEG); URINE COLOR YELLOW; URINE GLUCOSE NEG (NEG); URINE KETONE NEG (NEG); URINE LEUKOCYTE ESTERASE NEG (NEG); URINE NITRATE NEG (NEG); URINE PROTEIN NEG (NEG); URINE SPECIFIC GRAVITY 1.013 (1.003-1.035); URINE UROBILINOGEN 0.2 MG/DL (NEG)
[2016-06-25 13:00] LABS: CULTURE INDICATED? NO
[2016-06-25 13:26] LABS: AMPHETAMINE NEG (NEG); BARBITURATES NEG (NEG); BENZODIAZEPINES NEG (NEG); COCAINE NEG (NEG); MARIJUANA NEG (NEG); OPIATES NEG (NEG); TRICYCLIC ANTIDEPRESSANTS NEG (NEG); U METHADONE NEG (NEG)
[2016-06-25 13:38] LABS: ALBUMIN SERUM 3.2 g/dL (3.5-5.0); ALKALINE PHOSPHATASE 52 U/L (32-92); ALT (SGPT) 54 U/L (10-40); AST (SGOT) 18 U/L (10-42); BILIRUBIN, DIRECT 0.1 mg/dL (0.0-0.2); BILIRUBIN,INDIRECT 0.3 mg/dL (0.0-0.9); BILIRUBIN,TOTAL 0.4 mg/dL (0.2-2.0); BLOOD UREA NITROGEN 21 mg/dL (9-23); BUN/CREATININE RATIO 23.33; CALCIUM SERUM 8.4 mg/dL (8.4-10.2); CARBON DIOXIDE 26 mmol/L (22-31); CHLORIDE 102 mmol/L (100-111); CREATININE SERUM 0.9 mg/dL (0.6-1.4); GLOM FILT RATE Estimated 95.1 mL/min (>60); GLUCOSE FASTING 151 mg/dL (70-110); POTASSIUM 4.3 mmol/L (3.5-5.1); PROTEIN TOTAL SERUM 6.4 g/dL (6.0-8.3); SALICYLATE <4.0 mg/dL; SODIUM 136 mmol/L (135-145)
[2016-06-25 13:39] LABS: ACETAMINOPHEN <10 ug/mL; ALCOHOL BLOOD <5 mg/dL (0)
== END 2016-06-25 15:17 | disposition home or self-care (01) ==
LOC: CED 12:29
PROVIDERS: Emergency Medicine
DX: T42.6X2A Poisoning by other antiepileptic and sedative-hypnotic drugs, intentional self-harm, initial encounter (principal); T39.312A Poisoning by propionic acid derivatives, intentional self-harm, initial encounter; I10 Essential (primary) hypertension; K21.9 Gastro-esophageal reflux disease without esophagitis; F17.200 Nicotine dependence, unspecified, uncomplicated; Z98.890 Other specified postprocedural states; Z79.899 Other long term (current) drug therapy; Z79.82 Long term (current) use of aspirin; Y92.9 Unspecified place or not applicable
CPT/HCPCS: 36415; 80048; 80076; 80307; 81003; 93005; 96360; 99284; G0480

== ENCOUNTER 2016-06-28 07:59 | Emergency (ER) | payer MEDICAID ==
--- NOTE | ~2016-06-28 | CR72 ---
[facility] A Service of [facility] & [facility] RADIOLOGY TEXT RESULTS PATIENT: CESAI CASTRO LOCATION: [facility] : 60 UNIT #: [id number] AGE: [address]: oMlly Gomez MD SEX: M ORDER DR: [id number] [facility] [address] [facility] [place], [place] [address] [id number] E MR#: [id number] Acc #: [id number] NAME: CESIA CASTRO. : 1960 SEX: M STUDY DATE/TIME: 06/28/2016 8:07 UNIT: [facility] ROOM: STUDY DESCRIPTION: CR Chest Single View Portable Attending Physician: Molly Gomez M.D. Ordering Physician: Molly Gomez M.D. Primary Care Physician: Bernardo Noyola M.D. MEDICAL IMAGING REPORT This report is preliminary unless electronic signature is present EXAM Portable chest 06/28/2016 HISTORY 56-year-old male with shortness of air beginning last night. COMPARISON Chest 06/21/2016 FINDINGS Frontal chest demonstrates clear lungs. No pleural effusion or pneumothorax. Heart size and mediastinum are normal. Pulmonary vasculature normal. IMPRESSION No acute cardiopulmonary findings. Dictated by... Brent Garrett M.D. THIS IS AN ELECTRONICALLY VERIFIED REPORT Brent Garrett M.D. at 06/29/2016 8:10 AM Kathy TD: 06/28/2016 13:12 JOB #: [id number] MEDICAL IMAGING REPORT Page 1 of 1 COPY
--- NOTE | ~2016-06-28 | EKG ---
PATIENT: CESIA CASTRO UNIT #: [id number] Ventricular Rate: 78 BPM Atrial Rate: 78 BPM P-R Interval: 148 ms QRS Duration: 94 ms Q-T Interval: 384 ms QTC Calculation(Bezet): 437 ms P [place]: 66 degrees Calculated R [place]: -50 degrees Calculated T [place]: 59 degrees Diagnosis Line: Normal sinus rhythm Diagnosis Line: Left anterior fascicular block Diagnosis Line: Abnormal ECG Diagnosis Line: When compared with ECG of 25-JUN-2016 12:35, Diagnosis Line: (unconfirmed) Diagnosis Line: Nonspecific T wave abnormality no longer evident Diagnosis Line: in Inferior leads Diagnosis Line: Confirmed by ANA LUJAN MD ([id number]) on 06/29/2016 Diagnosis Line: 4:06:05 PM INTERPRETING MD: TAI DENTON
[2016-06-28 08:19] LABS: BASOPHIL# 0.2 X10e3 (0-0.3); BASOPHIL% 1.4 % (0-2.5); DIFF IND YES; EOSINOPHIL# 0.3 X10e3 (0-0.7); EOSINOPHIL% 1.5 % (0.0-7.0); HEMATOCRIT 30.4 % (38.0-50.0); HEMOGLOBIN 9.7 gm/dL (13.0-16.0); LYMPHOCYTE# 2.4 X10e3 (1.0-3.5); LYMPHOCYTE% 14.3 % (17.0-45.0); MEAN CELL VOLUME 86.1 FL (83-96); MEAN CORPUSCULAR HEMOGLOBIN 27.3 PG (28-34); MEAN CORPUSCULAR HGB CONC 31.7 g/dL (30-36); MEAN PLATELET VOLUME 6.6 FL (6.5-11.5); MONOCYTE# 1.5 X10e3 (0-1.0); MONOCYTE% 8.9 % (3.0-12.0); NEUTROPHIL# 12.2 X10e3 (1.5-7.1); NEUTROPHIL% 73.9 % (40-75); PLATELET COUNT 334 X10e3 (140-420); RED BLOOD COUNT 3.53 X10e (3.90-5.60); WHITE BLOOD COUNT 16.6 X10e3 (4.0-10.5)
[2016-06-28 08:34] LABS: POC - CKMB 5.4 ng/mL (0.0-7.9); POC - TROPONIN <0.05 ng/mL (<=0.05)
[2016-06-28 08:36] LABS: ANISOCYTOSIS SL; PLATELET ESTIMATE NORMAL (NORMAL)
[2016-06-28 09:03] LABS: ALBUMIN SERUM 3.5 g/dL (3.5-5.0); BILIRUBIN, DIRECT 0.1 mg/dL (0.0-0.2); BILIRUBIN,INDIRECT 0.7 mg/dL (0.0-0.9); BILIRUBIN,TOTAL 0.8 mg/dL (0.2-2.0); BUN/CREATININE RATIO 51.25; CALCIUM SERUM 8.6 mg/dL (8.4-10.2); CREATININE SERUM 0.8 mg/dL (0.6-1.4); GLOM FILT RATE Estimated 99.9 mL/min (>60); POTASSIUM 3.9 mmol/L (3.5-5.1); PROTEIN TOTAL SERUM 6.7 g/dL (6.0-8.3)
== END 2016-06-28 10:40 | disposition home or self-care (01) ==
LOC: CED 07:59
PROVIDERS: Emergency Medicine
DX: J44.9 Chronic obstructive pulmonary disease, unspecified (principal); M54.32 Sciatica, left side; F17.200 Nicotine dependence, unspecified, uncomplicated; Z79.899 Other long term (current) drug therapy
CPT/HCPCS: 71010; 80048; 80076; 82553; 83880; 84484; 85025; 93005; 94640; 99284

== ENCOUNTER 2016-06-28 15:00 | Emergency (ER) | payer MEDICAID | END 2016-06-28 15:25 | disposition home or self-care (01) | LOC: CED 15:00 | DX: M54.32 Sciatica, left side (principal); I10 Essential (primary) hypertension; J44.9 Chronic obstructive pulmonary disease, unspecified; Z79.899 Other long term (current) drug therapy; Z79.82 Long term (current) use of aspirin | CPT/HCPCS: 99283 ==

== ENCOUNTER 2016-06-29 | Inpatient (IN) | payer MEDICAID ==
--- NOTE | ~2016-06-29 | PN ---
Unit #: [id number] #: [id number] Patient: CESIA ENRIQUEZ [id number] [facility] [address] [place] [address] [id number] I MR#: [id number] NAME: CESIA ENRIQUEZ. ROOM: P174 Age: 56 Sex: M Admission Date: 06/29/2016 : 1960 Attending Physician: Kvng Bhagat M.D. Admitting Physician: Kvng Bhagat M.D. Primary Care Physician: Yanelis Doctor Not In System [employer] PROGRESS NOTES DATE OF SERVICE: 07/01/2016 SUBJECTIVE Mr. Enriquez is a 56-year-old white male, who was seen today and chart was reviewed, and case was discussed with the staff. He was lying in his bed, called up stating not feeling good, stating he is feeling awful and that he cannot move his legs and apparently has been a fall risk and wheelchair has been provided next to him. He states that his legs gave up and he has been having falls even before coming to the hospital "I fell and busted my teeth at home." He was seen to be unkempt, disheveled, and shaking and tremulous and in significant distress and discomfort and as such, does not appear to be doing very well. However, he has been taking the medications and tolerating them fairly well. MENTAL STATUS EXAMINATION Middle-aged white male, who was casually dressed with marginal personal hygiene, appears to be in some distress or discomfort. He was awake and alert with impaired attention and concentration. His mood was anxious with a congruent affect. His speech was slow and restricted in content. His thought processes were disorganized with some looseness of associations. His insight and judgment remain significantly impaired. TREATMENT PLAN 1. We will continue him on his current medications and treatment protocol. We will monitor his response and make further adjustments as needed. 2. We will continue to follow up. Dictated by... Alfredito Jin/florecita TD: 07/01/2016 22:37 JOB #: [id number] Unit #: [id number] #: [id number] Patient: CESIA ENRIQUEZ [facility] PROGRESS NOTES Page 1 of 1 X Kvng Bhagat MD
--- NOTE | ~2016-06-29 | PN ---
Unit #: [id number] #: [id number] Patient: CESIA ENRIQUEZ [id number] [facility] [address] [place] [address] [id number] I MR#: [id number] NAME: CESIA ENRIQUEZ. ROOM: P174 Age: 56 Sex: M Admission Date: 06/29/2016 : 1960 Attending Physician: Kvng Bhagat M.D. Admitting Physician: Kvng Bhagat M.D. Primary Care Physician: Yanelis Doctor Not In System [facility] PROGRESS NOTES DATE July 02, 2016 DISCUSSION Mr. Enriquez is a 56-year-old white male, who was seen today and chart was reviewed and the case was discussed with the staff. He has been anxious, withdrawn, and rather seclusive to himself. Meanwhile, he has been cooperative with the treatment recommendations and he has been taking the medications and tolerating them fairly well. MENTAL STATUS EXAMINATION Middle-aged white male, who was casually dressed with marginal personal hygiene and appears to be in no acute distress or discomfort. He was awake and alert on interaction with intact orientation. His mood is anxious with a congruent affect. He denies any suicidal or homicidal ideations, and also denies any auditory or visual hallucinations. His insight and judgment remain slightly impaired. TREATMENT PLAN 1. We will continue him on his current medications and treatment protocol, and will monitor his response, and make further adjustments as needed. 2. We will continue to followup. Dictated by... Alfredito Jin/rebeka TD: 07/02/2016 09:45 JOB #: [id number] Unit #: [id number] #: [id number] Patient: CESIA ENRIQUEZ [facility] PROGRESS NOTES Page 1 of 1 X Kvng Bhagat MD PROGRESS NOTE
--- NOTE | ~2016-06-29 | PN ---
Unit #: [id number] #: [id number] Patient: CESIA ENRIQUEZ [id number] [facility] [address] [place] [address] [id number] I MR#: [id number] NAME: CESIA ERNIQUEZ. ROOM: P174 Age: 56 Sex: M Admission Date: 06/29/2016 : 1960 Attending Physician: Kvng Bhagat M.D. Admitting Physician: Kvng Bhagat M.D. Primary Care Physician: Yanelis Doctor Not In System [facility] PROGRESS NOTES DATE June 30, 2016 DISCUSSION Mr. Enriquez is a 56-year-old white male, who was seen today and chart was reviewed and the case was discussed with the staff. He has been anxious, withdrawn, and rather seclusive to himself. Meanwhile, he has been cooperative with the treatment recommendations and he has been taking the medications and tolerating them fairly well with no reported side effects. MENTAL STATUS EXAMINATION Middle-aged white male, who was casually dressed with fair personal hygiene and appears to be in slight distress and discomfort. He was awake and alert on interaction with intact orientation. His mood is anxious with a congruent affect. He denies any suicidal or homicidal ideations. His insight and judgment remain slightly impaired. TREATMENT PLAN 1. We will continue him on his current medications and treatment protocol, and will monitor his response to the medications, and make further adjustments as needed. 2. We will continue to followup. Dictated by... Alfredito Jin/rebeka TD: 07/01/2016 05:20 JOB #: [id number] Unit #: [id number] #: [id number] Patient: CESIA ENRIQUEZ [facility] PROGRESS NOTES Page 1 of 1 X Kvng Bhagat MD X PROGRESS NOTE
--- NOTE | ~2016-06-29 | DS ---
Unit #: [id number] #: [id number] Patient: CESIA ENRIQUEZ [id number] [facility] [address] [place] [address] [id number] I MR#: [id number] NAME: CESIA ENRIQUEZ. ROOM: [facility] Age: 56 Sex: M Admission Date: 06/29/2016 : 1960 Discharge Date: 07/02/2016 Attending Physician: Kvng Bhagat M.D. Primary Care Physician: Generic Doctor Not In System DISCHARGE SUMMARY IDENTIFYING DATA Mr. Enriquez is a 56-year-old white male with a history of mood disorder, who was self-referred to the hospital. DISCHARGE DIAGNOSES Psychiatric: Hypertension, chronic obstructive pulmonary disease, coronary artery disease. Medical: None. Stressors: Moderate psychosocial stressors. HISTORY OF PRESENT ILLNESS Please see initial psychiatric evaluation for details. PAST PSYCHIATRIC HISTORY Please see initial psychiatric evaluation for details. PAST MEDICAL HISTORY Please see initial psychiatric evaluation for details. HOSPITAL COURSE The patient was [facility] the adult [facility] and was oriented to the hospital environment. Routine p.r.n. medications were initiated, and he was started back on his home medications and was closely monitored. Celexa as an antidepressant was initiated; however, the patient was seen to be showing poor insight into his situation and as such, it was decided that he will be discharged home and will continue treatment on an outpatient basis. DISCHARGE MEDICATIONS None. DISCHARGE CONDITION Stable. PROGNOSIS Guarded. Dictated by... Kvng Bhagat M.D. IAA/modl TD: 07/25/2016 13:41 Unit #: [id number] #: [id number] Patient: CESIA ENRIQUEZ JOB #: [id number] DISCHARGE SUMMARY Page 1 of 1 X Kvng Bhagat MD X DISCHARGE SUMMARY
--- NOTE | ~2016-06-29 | HP ---
Unit #: [id number] #: [id number] Patient: CESIA CASTRO [id number] [place] [address] [id number] I MR#: [id number] NAME: CESIA CASTRO. ROOM: 74 Age: 56 Sex: M Admission Date: 06/29/2016 : 1960 Attending Physician: Kvng Bhagat M.D. Admitting Physician: Kvng Bhagat M.D. Primary Care Physician: Generic Doctor Not In System HISTORY AND PHYSICAL HISTORY OF PRESENT ILLNESS The patient is a 56-year-old male admitted to [facility] on 06/29/2016 for suicidal ideations. PAST MEDICAL HISTORY 1. Depression 2. Anemia 3. COPD 4. Hypertension 5. Hyperlipidemia 6. CAD 7. Nicotine dependence PAST SURGICAL HISTORY Angioplasty with stents SOCIAL HISTORY The patient is unemployed and homeless. He smokes one to two packs of cigarettes daily. Denies alcohol and drug use. FAMILY MEDICAL HISTORY Noncontributory. ALLERGIES No known drug allergies. CURRENT MEDICATIONS 1. Gabapentin 2. Lisinopril 3. Metoprolol 4. Hydroxyzine 5. Citalopram 6. Atorvastatin 7. Plavix 8. Nitroglycerin REVIEW OF SYSTEMS CONSTITUTIONAL: No fever or chills. HEENT: Denies any sore throat, ear pain or runny nose. CARDIOVASCULAR: Denies chest pain, irregular heart rhythm or palpitations. CHEST: Denies shortness of breath or cough. No hemoptysis. GASTROINTESTINAL: Denies nausea, vomiting, diarrhea or chronic constipation. Unit #: [id number] #: [id number] Patient: CESIA CASTRO ENDOCRINE: Denies history of increased thirst or urination. No recent significant weight loss or gain. GENITOURINARY: Denies dysuria, frequency, or hematuria. SKIN: Denies any rashes. HEMATOLOGIC: Denies history of increased bleeding or bruising. MUSCULOSKELETAL: Denies any hot, swollen joints. No generalized muscle pain. NEUROLOGIC: Denies problems with vision or speech. No frequent, severe headaches. No numbness, tingling or weakness in any extremities. Denies loss of bladder or bowel control. PHYSICAL EXAM GENERAL: He is awake, alert and oriented in no acute distress. VITAL SIGNS: Temperature 97.9, heart rate 83, respiration 20, blood pressure 135/85. HEIGHT: 5'10". WEIGHT: 190 pounds. SKIN: Warm and dry without rash or lesion. HEENT: Normocephalic. TMs not viewed. Oral and nasal passages clear. Conjunctivae clear. PERRLA. EOMs intact. NECK: Supple without lymphadenopathy or thyromegaly. HEART: Regular rate and rhythm without murmur. LUNGS: Clear. ABDOMEN: Soft, nontender. : Not done. EXTREMITIES: No evidence of cyanosis, clubbing or edema. Moves all without focal deficit. NEUROLOGICAL: Grossly within normal limits. Cranial Nerves: II: Visual vazquez are intact. III, IV AND : Extraocular movements are intact. Pupils are equal, round and reactive to light. V: Facial sensation is grossly normal. VII: Facial movements and expression are normal. VIII: Auditory acuity grossly intact. IX, X: Uvula is midline. Phonation is normal. XI: Patient shrugs shoulders and turns head normally. XII: Tongue protrudes in the midline. Sensory and Motor Function: Sensory and motor sensation is grossly normal. Motor: moves all extremities well. IMPRESSION 1. Psychiatric admission. 2. Anemia. 3. COPD. 4. Hypertension. 5. Hyperlipidemia. 6. CAD. 7. Nicotine dependence. RECOMMENDATIONS Psychiatric per psychiatrist. MEDICAL: No contraindication to participate in facility activities. MEDICAL PROGNOSIS Fair. MEDICAL CONDITION Stable. Unit #: [id number] #: [id number] Patient: CESIA CASTRO Dictated by... Thuan Mendez/sascha TD: 06/30/2016 02:18 JOB #: [id number] HISTORY AND PHYSICAL Page 1 of 1 X URBANO FELICIANO APRN HISTORY AND PHYSICAL
--- NOTE | ~2016-06-29 | PA ---
Unit #: [id number] #: [id number] Patient: [facility] [id number] [facility] [address] [place] [address] [id number] I MR#: [id number] NAME: CESIA CASTRO. ROOM: P174 Age: 56 Sex: M Admission Date: 06/29/2016 : 1960 Date of Assessment: Attending Physician: Kvng Bhagat M.D. Admitting Physician: Kvng Bhagat M.D. PSYCHIATRIC ASSESSMENT DATE OF SERVICE 06/29/2016. IDENTIFYING DATA Mr. Castro is a 56-year-old, , white male who is a resident of [place], [place] and was transferred to from [facility] on a voluntary basis. CHIEF COMPLAINT "Suicidal ideation and plan to jump off the bridge." HISTORY OF PRESENT ILLNESS Mr. Castro is a 56-year-old, white male who took himself to the [facility] Emergency Room reporting suicidal ideation and plan to jump off the bridge and he reports that he is having difficulty sleeping and he falls from his tingling in his legs and reports he fell and busted his head and broke teeth, and reports he also does not eat and has been decompensating, and reports he cannot get his social security and that is frustrating him and does report increasing depression, anxiety, irritability, restlessness, feelings of hopelessness and helplessness, suicidal ideations with intent and plan, and reports that he has overdosed twice and he has cut his wrist and has significant history of suicide attempts in the past and as such, he was seen to be a danger to self and therefore, recommendation for inpatient level of care for safety and stabilization was made and the patient was transferred to us. SUBSTANCE ABUSE HISTORY The patient denies any history of alcohol or drug abuse. PAST PSYCHIATRIC HISTORY The patient has had history of inpatient psychiatric hospitalization at [facility] and review of the medical records indicate that currently he is not active in any treatment program, is not seeing a psychiatrist, and is not taking any psychotropic medications. PAST MEDICAL HISTORY Significant for hypertension, dyslipidemia, coronary artery disease, COPD. ALLERGIES No known medication allergies. PERSONAL AND SOCIAL HISTORY A 56-year-old white male who reports that he is and single and Unit #: [id number] #: [id number] Patient: CESIA CASTRO unemployed, and has poor social support system. MENTAL STATUS EXAMINATION Middle-aged white male who was casually dressed with fair personal hygiene, appears to be in no acute distress or discomfort. He was awake and alert on interaction with intact orientation to time, place, and person. His mood was anxious and depressed with a congruent affect. His speech was slow and restricted in content. His thought processes were disorganized with some looseness of associations and suicidal ideations. His insight and judgment remain significantly impaired. DIAGNOSTIC IMPRESSION Psychiatric: Major depressive disorder, recurrent, moderate, without psychotic features. Medical: Chronic obstructive pulmonary disease, hypertension, dyslipidemia, coronary artery disease. Stressors: Moderate psychosocial stressors. TREATMENT PLAN 1. The patient has presented with history of mood disorder, and has been decompensating and will need inpatient hospitalization for safety and stabilization. We will start him back on his home medications. We will adjust the medications and monitor response. 2. Supportive therapy was provided to the patient. 3. Safe, structured, and nourishing environment will be provided. ESTIMATED LENGTH OF STAY 5 to 7 days. ABILITY TO HELP SELF Limited. WILLINGNESS TO HELP SELF The patient appears to be willing to help self. STRENGTHS 1. Communicative. 2. Cooperative. PROBLEMS 1. Chronic dysphoric symptoms. 2. Chronic chemical dependency. 3. Poor social support system. DISCHARGE CRITERIA This will be contingent upon the patient's ability to show resolution of his depression and anxiety and his ability to stay safe to himself, particularly after discharge from the hospital. Dictated by... Alfredito Jin/florecita TD: 06/29/2016 10:23 JOB #: [id number] Unit #: [id number] #: [id number] Patient: CESIA CASTRO PSYCHIATRIC ASSESSMENT Page 1 of 1 X Kvng Bhagat MD PSYCHIATRIC ASSESSMENT
--- NOTE | ~2016-06-29 | CO ---
Unit #: [id number] #: [id number] Patient: CESIA CASTRO [id number] [facility] [address] [place] [address] [id number] I MR#: [id number] NAME: CESIA CASTRO. ROOM: P174 Age: 56 Sex: M Admission Date: 06/29/2016 : 1960 Attending Physician: Kvng Bhagat M.D. Primary Care Physician: Generic Doctor Not In System Consultation Date: 06/29/2016 CONSULTATION REPORT ORDERING PROVIDER Dr. Bhagat. REASON FOR CONSULT Swollen lymph nodes. SUBJECTIVE The patient reports that for the last day or two, he has had pain and swelling in his neck. He believes that there are painful lymph nodes. He says it hurts to swallow anything and feels like "razor blade." He denies any cough, fever, or headache. OBJECTIVE The patient was noted to have enlarged cervical lymph nodes, most notably on the left side. I was unable to visualize his tonsils, but he does appear to have an abscess tooth on the left lower side of his mouth. ASSESSMENT Enlarged lymph nodes, possible strep infection and tooth abscess. PLAN Plan is to start the patient on antibiotic therapy. Dictated by... Rosa Weems A.P.R.N. for Alfredito Wiggins/florecita TD: 06/29/2016 21:41 JOB #: [id number] CONSULTATION REPORT Page 1 of 1 X ROSA WEEMS APRN X CONSULTATION REPORT
[2016-06-30 09:52] LABS: BASOPHIL# 0.1 X10e3 (0-0.3); BASOPHIL% 0.8 % (0-2.5); EOSINOPHIL# 0.2 X10e3 (0-0.7); EOSINOPHIL% 1.7 % (0.0-7.0); HEMATOCRIT 32.6 % (38.0-50.0); HEMOGLOBIN 10.4 gm/dL (13.0-16.0); LYMPHOCYTE# 1.8 X10e3 (1.0-3.5); LYMPHOCYTE% 16.6 % (17.0-45.0); MEAN CELL VOLUME 86.8 FL (83-96); MEAN CORPUSCULAR HEMOGLOBIN 27.7 PG (28-34); MEAN PLATELET VOLUME 6.6 FL (6.5-11.5); MONOCYTE# 0.9 X10e3 (0-1.0); MONOCYTE% 8.2 % (3.0-12.0); NEUTROPHIL# 7.9 X10e3 (1.5-7.1); NEUTROPHIL% 72.7 % (40-75); PLATELET COUNT 370 X10e3 (140-420); RED BLOOD COUNT 3.75 X10e (3.90-5.60); RED CELL DISTRIBUTION WIDTH 15.9 % (11.0-15.5); WHITE BLOOD COUNT 10.8 X10e3 (4.0-10.5)
[2016-06-30 09:53] LABS: DIFF IND NO
[2016-06-30 10:07] LABS: THYROID STIMULATING HORMONE 0.4 uIU/ml (0.34-5.60)
[2016-06-30 10:14] LABS: FREE THYROXIN (T4) 0.95 ng/dL (0.58-1.64)
[2016-06-30 11:07] LABS: ALBUMIN SERUM 3.3 g/dL (3.5-5.0); BILIRUBIN,TOTAL 0.5 mg/dL (0.2-2.0); BUN/CREATININE RATIO 26.66; CALCIUM SERUM 8.8 mg/dL (8.4-10.2); CREATININE SERUM 0.6 mg/dL (0.6-1.4); GLOM FILT RATE Estimated 112.4 mL/min (>60); POTASSIUM 4.8 mmol/L (3.5-5.1); PROTEIN TOTAL SERUM 6.2 g/dL (6.0-8.3)
== END 2016-07-02 14:30 | disposition left against medical advice (07) | DRG 885 ==
LOC: P1E 04:33
PROVIDERS: Psychiatry & Neurology Psychiatry
DX: F33.1 Major depressive disorder, recurrent, moderate (principal); I10 Essential (primary) hypertension; J44.9 Chronic obstructive pulmonary disease, unspecified; E78.5 Hyperlipidemia, unspecified; I25.10 Atherosclerotic heart disease of native coronary artery without angina pectoris; D64.9 Anemia, unspecified; F17.210 Nicotine dependence, cigarettes, uncomplicated; Z79.01 Long term (current) use of anticoagulants; R59.9 Enlarged lymph nodes, unspecified
CPT/HCPCS: 80053; 84439; 84443; 85025

== ENCOUNTER 2016-07-25 20:31 | Emergency (ER) | payer MEDICAID ==
--- NOTE | ~2016-07-25 | EKG ---
PATIENT: CESIA CASTRO UNIT #: [id number] Ventricular Rate: 98 BPM Atrial Rate: 98 BPM P-R Interval: 166 ms QRS Duration: 98 ms Q-T Interval: 360 ms QTC Calculation(Bezet): 459 ms P [place]: 56 degrees Calculated R [place]: -64 degrees Calculated T [place]: 54 degrees Diagnosis Line: Normal sinus rhythm Diagnosis Line: Possible Left atrial enlargement Diagnosis Line: Left anterior fascicular block Diagnosis Line: Abnormal ECG Diagnosis Line: When compared with ECG of 28-JUN-2016 08:01, Diagnosis Line: No significant change was found Diagnosis Line: Confirmed by JA MARTINEZ MD ([id number]) on Diagnosis Line: 07/26/2016 1:59:36 PM INTERPRETING MD: DAX
--- NOTE | ~2016-07-25 | CR72 ---
[facility] A Service of [facility] RADIOLOGY TEXT RESULTS PATIENT: CESIA CASTRO LOCATION: [facility] : 60 UNIT #: [id number] AGE: [address]: Coy Amador MD SEX: M ORDER DR: [id number] [facility] [address] [place], [place] [address] [id number] MR#: [id number] Acc #: [id number] NAME: CESIA CASTRO. : 1960 SEX: M STUDY DATE/TIME: 07/25/2016 23:12 UNIT: [facility] ROOM: STUDY DESCRIPTION: CR Chest Single View Portable Attending Physician: Coy Amador M.D. Ordering Physician: Ed Doc Alfredito Reynoso Primary Care Physician: No Primary Care Physician MEDICAL IMAGING REPORT This report is preliminary unless electronic signature is present EXAM Chest x-ray, 07/25/2016. HISTORY 56-year-old male in the ED complaining of a 4-day history of chest pain and shortness of air. TECHNIQUE AP portable chest x-ray. FINDINGS The examination is negative. Heart size and pulmonary vascularity are normal. The lungs are expanded and clear. No visible pulmonary infiltrate or pleural effusion. No change since 06/28/2016. IMPRESSION No active disease. No change since 06/28/2016. Dictated by... Uriel King M.D. THIS IS AN ELECTRONICALLY VERIFIED REPORT Uriel King M.D. at 07/26/2016 9:51 PM ANALYW/florentin TD: 07/26/2016 11:55 JOB #: [id number] MEDICAL IMAGING REPORT Page 1 of 1 COPY
--- NOTE | ~2016-07-25 | CT16 ---
[facility] A Service of [facility] RADIOLOGY TEXT RESULTS PATIENT: CESIA CASTRO LOCATION: [facility] : 60 UNIT #: [id number] AGE: [address]: Coy Amador MD SEX: M ORDER DR: [id number] [facility] [address] [place], [place] [address] [id number] E MR#: [id number] Acc #: [id number] NAME: CESIA CASTRO. : 1960 SEX: M STUDY DATE/TIME: 07/26/2016 1:58 UNIT: [facility] ROOM: STUDY DESCRIPTION: CT Angio Chest for PE Attending Physician: Coy Amador M.D. Ordering Physician: Molly Gomez M.D. Primary Care Physician: No Primary Care Physician MEDICAL IMAGING REPORT This report is preliminary unless electronic signature is present EXAM CT chest with contrast, pulmonary arteriography protocol, 07/26/2016. HISTORY 56-year-old male in the ED complaining of chest pain and shortness of air beginning several hours ago. TECHNIQUE CT examination of the chest with IV contrast using pulmonary arteriography protocol. 3-D CTA images were reformatted in multiple planes. This CT exam was performed with one or more of the following radiation dose reduction techniques: automatic exposure control, adjustment of mA and/or kV according to patient size, and iterative reconstruction. COMPARISON CTA chest, 06/21/2016. FINDINGS There is no evidence of pulmonary embolism. Stable mild aneurysmal dilatation of the mid ascending thoracic aorta measuring up to 4.2 cm. No evidence of aortic dissection. Remaining aortic segments are normal in caliber. No mediastinal fluid collection or pericardial effusion. Heart size normal. The lungs are expanded and clear. No visible pulmonary infiltrate, pneumothorax, or pleural effusion. No suspicious mass or adenopathy within the chest. Limited upper abdominal images are unremarkable. IMPRESSION 1. No acute abnormality within the chest. 2. No evidence of pulmonary embolism. 3. Stable mild aneurysmal dilatation of the ascending thoracic aorta [facility] A Service [facility] RADIOLOGY TEXT RESULTS PATIENT: CESIA CASTRO [id number] 60 UNIT #: [id number] AGE: [address]: Coy Amador MD SEX: M ORDER DR: measuring up to 4.2 cm, unchanged since the prior exam. 4. Lungs clear. No pleural or pericardial effusion. Dictated by... Uriel King M.D. THIS IS AN ELECTRONICALLY VERIFIED REPORT Uriel King M.D. at 07/26/2016 9:53 PM RGW/florentin TD: 07/26/2016 13:08 JOB #: [id number] MEDICAL IMAGING REPORT Page 1 of 1 COPY
[2016-07-25 22:53] LABS: BASOPHIL# 0.1 X10e3 (0-0.3); BASOPHIL% 1.1 % (0-2.5); EOSINOPHIL# 0.3 X10e3 (0-0.7); EOSINOPHIL% 2.1 % (0.0-7.0); HEMATOCRIT 34.1 % (38.0-50.0); HEMOGLOBIN 10.9 gm/dL (13.0-16.0); LYMPHOCYTE# 3.1 X10e3 (1.0-3.5); MEAN CELL VOLUME 85.1 FL (83-96); MEAN CORPUSCULAR HEMOGLOBIN 27.3 PG (28-34); MEAN CORPUSCULAR HGB CONC 32.1 g/dL (30-36); MEAN PLATELET VOLUME 6.3 FL (6.5-11.5); MONOCYTE# 1.1 X10e3 (0-1.0); NEUTROPHIL# 7.7 X10e3 (1.5-7.1); NEUTROPHIL% 62.8 % (40-75); PLATELET COUNT 452 X10e3 (140-420); RED BLOOD COUNT 4.01 X10e (3.90-5.60); RED CELL DISTRIBUTION WIDTH 15.6 % (11.0-15.5); WHITE BLOOD COUNT 12.3 X10e3 (4.0-10.5)
[2016-07-25 22:56] LABS: DIFF IND NO
[2016-07-25 22:57] LABS: POC - CKMB 1.1 ng/mL (0.0-7.9); POC - TROPONIN <0.05 ng/mL (<=0.05)
[2016-07-25 23:19] LABS: ALBUMIN SERUM 4.1 g/dL (3.5-5.0); BILIRUBIN,INDIRECT 0.1 mg/dL (0.0-0.9); BILIRUBIN,TOTAL 0.2 mg/dL (0.2-2.0); BUN/CREATININE RATIO 25.71; CREATININE SERUM 0.7 mg/dL (0.6-1.4); GLOM FILT RATE Estimated 105.5 mL/min (>60); POTASSIUM 3.7 mmol/L (3.5-5.1); PROTEIN TOTAL SERUM 7.7 g/dL (6.0-8.3)
[2016-07-25 23:20] LABS: BILIRUBIN, DIRECT 0.1 mg/dL (0.0-0.2)
[2016-07-26 00:04] LABS: ARTERIAL BLOOD GAS ALLEN TEST NORMAL; ARTERIAL BLOOD GAS ART SITE RIGHT RADIAL; ARTERIAL BLOOD GAS CARBOXY HB 2.2 %sat (0.0-9.0); ARTERIAL BLOOD GAS DELIVERY NASAL CANNULA; ARTERIAL BLOOD GAS HCO3 22.3 mmol/L; ARTERIAL BLOOD GAS MET HB 0.9 %sat (0.0-2.0); ARTERIAL BLOOD GAS PCO2 39.9 mmHg (35.0-45.0); ARTERIAL BLOOD GAS PO2 98.8 mmHg (80.0-100); ARTERIAL BLOOD GAS pH 7.356 (7.350-7.450); ARTERIAL DRAW? YES
[2016-07-26 00:41] LABS: POC - CKMB <1.0 ng/mL (0.0-7.9); POC - TROPONIN <0.05 ng/mL (<=0.05)
== END 2016-07-26 03:45 | disposition home or self-care (01) ==
LOC: CED 20:31
PROVIDERS: Emergency Medicine
DX: J44.1 Chronic obstructive pulmonary disease with (acute) exacerbation (principal); I25.2 Old myocardial infarction; E11.9 Type 2 diabetes mellitus without complications; I25.10 Atherosclerotic heart disease of native coronary artery without angina pectoris; Z79.899 Other long term (current) drug therapy; Z79.51 Long term (current) use of inhaled steroids; Z79.891 Long term (current) use of opiate analgesic; Z79.82 Long term (current) use of aspirin
CPT/HCPCS: 36415; 36600; 71010; 71275; 80048; 80076; 82553; 82803; 84484; 85025; 85379; 93005; 99284; Q9967

== ENCOUNTER 2016-07-30 23:00 | Inpatient (IN) | payer MEDICAID ==
--- NOTE | ~2016-07-30 | PN ---
Unit #: [id number] #: [id number] Patient: CESIA CASTRO [id number] [facility] [address] [place] [address] [id number] I MR#: [id number] NAME: CESIA CASTRO. ROOM: P114 Age: 56 Sex: M Admission Date: 07/31/2016 : 1960 Attending Physician: Kvng Bhagat M.D. Admitting Physician: Kvng Bhagat M.D. Primary Care Physician: Primary Care Physician Lisa JARVIS PROGRESS NOTES DATE 08/01/2016 DISCUSSION Mr. Castro is a 56-year-old white male who was seen today and chart was reviewed and case was discussed with the staff. He has been anxious, withdrawn and rather seclusive to himself. Meanwhile, he has been cooperative with treatment recommendations and taking medications and tolerating them fairly well with no reported side effects. MENTAL STATUS EXAMINATION Middle-aged white male who was casually dressed with fair personal hygiene and appears to be in no acute distress or discomfort. He was awake and alert on interaction with intact orientation. His mood was anxious with congruent affect. He denies any suicidal or homicidal ideation and also denies any auditory or visual hallucinations. His insight and judgement remains slightly impaired. TREATMENT PLAN 1. Will continue on his current medications and treatment protocol. Will monitor his response and make further adjustments as needed. 2. Will continue to follow up. Dictated by... Alfredito Jin/korin TD: 08/01/2016 20:54 JOB #: [id number] Unit #: [id number] #: [id number] Patient: CESIA CASTRO [facility] PROGRESS NOTES Page 1 of 1 X Kvng Bhagat MD PROGRESS NOTE
--- NOTE | ~2016-07-30 | PN ---
Unit #: [id number] #: [id number] Patient: CESIA CASTRO [id number] [facility] [address] [place] [address] [id number] I MR#: [id number] NAME: CESIA CASTRO. ROOM: P114 Age: 56 Sex: M Admission Date: 07/31/2016 : 1960 Attending Physician: Kvng Bhagat M.D. Admitting Physician: Kvng Bhagat M.D. Primary Care Physician: Primary Care Physician Lisa KRAUSE NOTES DATE OF SERVICE: 08/03/2016 SUBJECTIVE Mr. Castro is a 56-year-old white male who was seen today and chart was reviewed and case was discussed with the staff. He was laying in his bed and stated that his back was hurting and wanted us to help him with that. Meanwhile, he also has been reporting some persistent depression and anxiety, and reports not feeling much better than that. He has been taking the medications and tolerating them fairly well with no reported side effects. MENTAL STATUS EXAMINATION Middle-aged white male who was casually dressed with fair personal hygiene, appears to be in no acute distress or discomfort. He was awake and alert on interaction with intact orientation. His mood was anxious and depressed with a congruent affect. He reports having suicidal ideations, but denies any intent or plan. His insight and judgment remain slightly impaired. TREATMENT PLAN 1. We will continue him on his current treatment protocol. We will monitor his response to the medications and make further adjustments as needed. 2. We will continue to follow up. Dictated by... Alfredito Jin/florecita TD: 08/03/2016 23:07 JOB #: [id number] Unit #: [id number] #: [id number] Patient: CESIA CASTRO [facility] PROGRESS NOTES Page 1 of 1 X Kvng Bhagat MD PROGRESS NOTE
--- NOTE | ~2016-07-30 | PN ---
Unit #: [id number] #: [id number] Patient: CESIA CASTRO [id number] [facility] [address] [place] [address] [id number] I MR#: [id number] NAME: CESIA CASTRO. ROOM: P114 Age: 56 Sex: M Admission Date: 07/31/2016 : 1960 Attending Physician: Kvng Bhagat M.D. Admitting Physician: Kvng Bhagat M.D. Primary Care Physician: Primary Care Physician iLsa KRAUSE NOTES DATE OF SERVICE: 08/02/2016 SUBJECTIVE Mr. Castro is a 56-year-old white male who was seen today and chart was reviewed and the case was discussed with the staff. He has been anxious, withdrawn, though has not shown any agitation, irritability, and has been cooperative with treatment recommendations and has been taking the medications and tolerating them fairly well with no reported side effects. MENTAL STATUS EXAMINATION Middle-aged white male, who was casually dressed with fair personal hygiene, appears to be in no acute distress or discomfort. He was awake and alert on interaction with intact orientation. His mood was anxious with a congruent affect. He denies any suicidal or homicidal ideations. His insight and judgment remain slightly impaired. TREATMENT PLAN 1. We will continue him on his current treatment protocol and monitor his response to medications and make further adjustments as needed. 2. We will continue to follow up. Dictated by... Alfredito Jin/samreenl TD: 08/02/2016 12:23 JOB #: [id number] [facility] PROGRESS NOTES Page 1 of 1 X Kvng Bhagat MD PROGRESS NOTE
--- NOTE | ~2016-07-30 | DS ---
Unit #: [id number] #: [id number] Patient: [facility] [id number] [facility] [address] [place] [address] [id number] I MR#: [id number] NAME: CESIA CASTRO. ROOM: 14 Age: 56 Sex: M Admission Date: 07/31/2016 : 1960 Discharge Date: Attending Physician: Kvng Bhagat M.D. Primary Care Physician: Primary Care Physician No DISCHARGE SUMMARY IDENTIFYING DATA Mr. Castro is a 56-year-old white male, who is a resident of [place], [place], and is known to us from previous encounter, was self-referred to the hospital on voluntary basis. DISCHARGE DIAGNOSES Psychiatric: Major depressive disorder, recurrent, moderate, without psychotic features. Medical: Chronic obstructive pulmonary disease, hypertension, coronary artery disease, degenerative disk disease. Stressors: Moderate psychosocial stressors. HISTORY OF PRESENT ILLNESS Please see initial psychiatric evaluation for details. PAST PSYCHIATRIC HISTORY Please see initial psychiatric evaluation for details. PAST MEDICAL HISTORY Please see initial psychiatric evaluation for details. HOSPITAL COURSE The patient was admitted to the adult psychiatric unit at [facility] and was oriented to the hospital environment. Routine p.r.n. medications were initiated, and he was started back on his home medications and medications were adjusted and Celexa was increased to 40 mg a day with good tolerability and therapeutic response. He was taking the medications regularly and was tolerating them fairly well and was showing improvement in his depression and anxiety, though it was noted that he was minimally participating in treatment related activities and was just sleeping in his home and eat and would not participate in any treatment related activities and then he would complain of different somatic symptoms; however, with no further adjustments being made in his medications, it was decided that he will be discharged home and will continue treatment on an outpatient basis. DISCHARGE MEDICATIONS Celexa 40 mg a day for depression. DISCHARGE CONDITION Stable. PROGNOSIS Fair. Unit #: [id number] #: [id number] Patient: CESIA CASTRO Dictated by... Alfredito Jin/samreenl TD: 08/04/2016 07:21 JOB #: [id number] DISCHARGE SUMMARY Page 1 of 1 X Kvng Bhagat MD DISCHARGE SUMMARY
--- NOTE | ~2016-07-30 | HP ---
Unit #: [id number] #: [id number] Patient: MAGDI CASTRO [id number] [place] [address] [id number] MR#: [id number] NAME: MAGDI CASTRO. ROOM: P114 Age: 56 Sex: M Admission Date: 07/31/2016 : 1960 Attending Physician: Kvng Bhagat M.D. Admitting Physician: Kvng Bhagat M.D. Primary Care Physician: Primary Care Physician No HISTORY AND PHYSICAL HISTORY OF PRESENT ILLNESS Magdi is a 56 year old admitted to [address] [place] [address] with depression and verbalizing wanting to hurt himself. PAST MEDICAL HISTORY 1. History of anemia. 2. COPD. 3. High blood pressure. 4. Hyperlipidemia. 5. Coronary artery disease. a. Angioplasty with stent. PAST SURGICAL HISTORY Nothing reported. ALLERGIES No known drug allergies. SOCIAL HISTORY Smokes 1/2 pack per day. Denies alcohol and illicit drug use. FAMILY HISTORY Medically noncontributory. REVIEW OF SYSTEMS CONSTITUTIONAL: No fever or chills. HEENT: Denies any sore throat, ear pain or runny nose. CARDIOVASCULAR: Denies chest pain, irregular heart rhythm or palpitations. CHEST: Denies shortness of breath or cough. No hemoptysis. GASTROINTESTINAL: Denies nausea, vomiting, diarrhea or chronic constipation. ENDOCRINE: Denies history of increased thirst or urination. No recent significant weight loss or gain. GENITOURINARY: Denies dysuria, frequency, or hematuria. SKIN: Denies any rashes. HEMATOLOGIC: Denies history of increased bleeding or bruising. MUSCULOSKELETAL: Denies any hot, swollen joints. No generalized muscle pain. NEUROLOGIC: Denies problems with vision or speech. No frequent, severe headaches. No numbness, tingling or weakness in any extremities. Denies loss of bladder or bowel control. CURRENT MEDICATIONS Unit #: [id number] #: [id number] Patient: MAGDI CASTRO 1. Lipitor 40 mg q.h.s. 2. Ibuprofen p.r.n. 3. Celexa 40 mg daily. 4. Nicotine patch 14 mg daily. 5. Relafen 500 mg b.i.d. 6. Lopressor 25 mg b.i.d. 7. Zestril 20 mg daily. 8. Neurontin 300 mg t.i.d. 9. Plavix 75 mg daily. 10. Symbicort b.i.d. 11. Nitroglycerin sublingually p.r.n. 12. Milk of Magnesia p.r.n. 13. Maalox p.r.n. 14. Tylenol p.r.n. PHYSICAL EXAMINATION GENERAL: Alert, well-nourished, no apparent distress. VITAL SIGNS: Blood pressure 130/84, heart rate 80, respirations 16, temperature 98.6. WEIGHT: 179. HEIGHT: 5 feet 10 inches. SKIN: Warm and dry without rash or lesion. HEENT: Normocephalic. TMs not viewed. Oral and nasal passages clear. Conjunctivae clear. PERRLA. EOMs intact. NECK: Supple without lymphadenopathy or thyromegaly. HEART: Regular rate and rhythm without murmur. LUNGS: Clear. ABDOMEN: Soft, nontender. : Not done. EXTREMITIES: No evidence of cyanosis, clubbing or edema. Moves all without focal deficit. NEUROLOGICAL: Grossly within normal limits. Cranial Nerves: II: Visual vazquez are intact. III, IV AND : Extraocular movements are intact. Pupils are equal, round and reactive to light. V: Facial sensation is grossly normal. VII: Facial movements and expression are normal. VIII: Auditory acuity grossly intact. IX, X: Uvula is midline. Phonation is normal. XI: Patient shrugs shoulders and turns head normally. XII: Tongue protrudes in the midline. Sensory and Motor Function: Sensory and motor sensation is grossly normal. Motor: moves all extremities well. Coordination: Gait is normal. Deep Tendon Reflexes: Intact. IMPRESSION Psychiatric admission. RECOMMENDATIONS PSYCHIATRIC: Per psychiatrist. MEDICAL: See no contraindications to participate in facility's activities. Dictated by... Melissa Hernandez P.A.-C. for Lucie Hennessy M.D. Unit #: [id number] #: [id number] Patient: MAGDI CASTRO ROSY/korin TD: 07/31/2016 18:51 JOB #: [id number] HISTORY AND PHYSICAL Page 1 of 1 X Melissa Hernandez HISTORY AND PHYSICAL
--- NOTE | ~2016-07-30 | PA ---
Unit #: [id number] #: [id number] Patient: CESIA ENRIQUEZ [id number] [place] [address] [id number] I MR#: [id number] NAME: CESIA ENRIQUEZ. ROOM: P114 Age: 56 Sex: M Admission Date: 07/31/2016 : 1960 Date of Assessment: Attending Physician: Kvng Bhagat M.D. Admitting Physician: Kvng Bhagat M.D. Primary Care Physician: Primary Care Physician No PSYCHIATRIC ASSESSMENT DATE OF SERVICE 07/31/2016. IDENTIFYING DATA Mr. Enriquez is a 56-year-old white male, who is a resident of [place], [place], and is known to us from previous encounter, was self-referred to the hospital on voluntary basis. CHIEF COMPLAINT "I want to kill Jayden and Roney due to they both rip me off." HISTORY OF PRESENT ILLNESS Mr. Enriquez is a 56-year-old white male with history of mood disorder, who was self-referred to the hospital reporting homicidal ideations toward 2 particular people and "Jayden has stolen my food stamps and that I was told I could press charges, Roney has stolen property off me while I was sleeping on the streets." The patient stated that he had a knife and a 22 pistol to shot the guys and then kill himself. He reports that he is tired of his life that is full of heart ache and disappointment and reports that his health has fallen to the point that he cannot breathe or walk due to his medical health issues and states that he would rather than put up with this daily suffering. He does report anger, agitation, aggression, irritability, mood swings, poor frustration tolerance, as well as depression with feelings of hopelessness and helplessness, and suicidal ideations and was seen to be a significant threat to himself and others, and as such, recommendation for inpatient level of care for safety and stabilization was made and the patient was transferred to us. SUBSTANCE ABUSE HISTORY The patient denies any alcohol or drug abuse. PAST PSYCHIATRIC HISTORY The patient has had history of inpatient psychiatric hospitalization at [facility], and review of the medical records indicate that he has been diagnosed and treated for mood disorder. He is supposed to be on Celexa, but is not clear if he has been compliant with medications. PAST MEDICAL HISTORY The patient's medical history significant for COPD, hypertension, coronary artery disease, degenerative disk disease, scoliosis. ALLERGIES Unit #: [id number] #: [id number] Patient: CESIA ENRIQUEZ No known medication allergies. PERSONAL AND SOCIAL HISTORY A 56-year-old white male, who reports that he is single, unemployed, and homeless and has poor social support system. MENTAL STATUS EXAMINATION Middle-aged white male who was casually dressed with fair personal hygiene, appears to be in slight distress and discomfort. He was awake and alert on interaction with intact orientation to time, place, and person. His mood was anxious and depressed with a congruent affect. His speech was slow and restricted in content. He reports having suicidal ideations as well as homicidal ideations. His insight and judgment remain significantly impaired. DIAGNOSTIC IMPRESSION Psychiatric: Major depressive disorder, recurrent, moderate, without psychotic features. Medical: Chronic obstructive pulmonary disease, hypertension, coronary artery disease, degenerative disk disease, scoliosis. Stressors: Moderate psychosocial stressors. TREATMENT PLAN 1. The patient has presented with history of mood disorder, and has been decompensating and will need inpatient hospitalization for safety and stabilization. We will start him back on his home medications. We will adjust the medications and monitor response. 2. Supportive therapy was provided to the patient. 3. Safe, structured, and nourishing environment will be provided. ESTIMATED LENGTH OF STAY 4 to 5 days. ABILITY TO HELP SELF Limited. WILLINGNESS TO HELP SELF The patient appears to be willing to help self. STRENGTHS 1. Communicative. 2. Cooperative. PROBLEMS 1. Chronic dysphoric symptoms. 2. Poor social support system. DISCHARGE CRITERIA This will be contingent upon the patient's ability to show resolution of his depression and anxiety and his ability to stay safe to himself, particularly after discharge from the hospital. Dictated by... Alfredito Jin/florecita Unit #: [id number] #: [id number] Patient: CESIA ENRIQUEZ TD: 07/31/2016 07:06 JOB #: [id number] PSYCHIATRIC ASSESSMENT Page 1 of 1 X Kvng Bhagat MD PSYCHIATRIC ASSESSMENT
== END 2016-08-04 13:00 | disposition home or self-care (01) | DRG 885 ==
LOC: P1S 07-31 03:20
DX: F33.1 Major depressive disorder, recurrent, moderate (principal); M41.9 Scoliosis, unspecified; I10 Essential (primary) hypertension; J44.9 Chronic obstructive pulmonary disease, unspecified; I25.10 Atherosclerotic heart disease of native coronary artery without angina pectoris

== ENCOUNTER 2016-08-04 15:28 | Emergency (ER) | payer MEDICAID | END 2016-08-04 16:37 | disposition HOOLOP | LOC: CED 15:28 | DX: S61.512A Laceration without foreign body of left wrist, initial encounter (principal); S61.511A Laceration without foreign body of right wrist, initial encounter; X78.9XXA Intentional self-harm by unspecified sharp object, initial encounter; Y92.9 Unspecified place or not applicable; F17.200 Nicotine dependence, unspecified, uncomplicated; K21.9 Gastro-esophageal reflux disease without esophagitis; J44.9 Chronic obstructive pulmonary disease, unspecified | CPT/HCPCS: 99285 ==

== ENCOUNTER 2016-08-04 16:00 | Inpatient (IN) | payer MEDICAID ==
--- NOTE | ~2016-08-04 | HP ---
Unit #: [id number] #: [id number] Patient: MAGDI CASTRO [id number] [facility] [address] [place] [address] [id number] I MR#: [id number] NAME: MAGDI CASTRO. ROOM: P114 Age: 56 Sex: M Admission Date: 08/04/2016 : 1960 Attending Physician: Kvng Bhagat M.D. Admitting Physician: Kvng Bhagat M.D. Primary Care Physician: Ailyn Newman HISTORY AND PHYSICAL HISTORY OF PRESENT ILLNESS Magdi is a 56 year old admitted to [address] [place] [address] because of his self-harming behavior. On 08/04/2016 he was discharged from our facility. He was escorted down to the front of the hospital security gave him his belongings. He removed a box office agent from his belongings and cut both of his arms. First aid was administered. He was picked up by EMS and transported to [facility] for medical clearance. He was later returned back to [facility] where he was readmitted because of his depression and self-harming behavior. The patient was seen and H & P dated 07/31/2016 was reviewed. This is current no changes except he does have superficial cuts along both forearms. There is no increased redness, swelling, heat or pus noted. Neurovascular intact. Please see H & P dated 07/31/2016 for complete history and physical exam. Dictated by... Melissa Hernandez P.A.-C. for Alfredito Wiggins/sascha TD: 08/05/2016 23:20 JOB #: [id number] HISTORY AND PHYSICAL Page 1 of 1 X Melissa Hernandez HISTORY AND PHYSICAL
--- NOTE | ~2016-08-04 | PN ---
Unit #: [id number] #: [id number] Patient: CESIA CASTRO [id number] [facility] [address] [place] [address] [id number] I MR#: [id number] NAME: CESIA CASTRO. ROOM: 14 Age: 56 Sex: M Admission Date: 08/04/2016 : 1960 Attending Physician: Kvng Bhagat M.D. Admitting Physician: Kvng Bhagat M.D. Primary Care Physician: Ailyn BROOKSCE PROGRESS NOTES DATE August 06, 2016. DISCUSSION Mr. Casrto is a 56-year-old, white male who was seen today and chart was reviewed. The case was discussed with the staff. Reports patient has been exhibiting manipulative and dramatic behavior. He is in a camera-monitored room. He tries to hide from the camera and when staff goes in to check on him, he just jumps/hops in the bed and acts like he is sleeping. When I approached him, he was laying in his bed and was able to look at me after he opened his eyes and then he closed the eyes back and then he would not interact and would not respond to my addressing him and, as such, appears to be exhibiting significant manipulative behavior. He has been, however, taking the medications and tolerating them fairly well. MENTAL STATUS EXAMINATION Middle age, white male who was casually dressed with a fair personal hygiene and appears to be in no acute distress or discomfort. He was awake and alert on interaction with intact orientation. His mood was anxious and depressed with a congruent affect. Speech was slow and goal directed. He report having suicidal ideation, but denies any homicidal ideation. He also denies any auditory or visual hallucinations. His insight and judgement remain slightly impaired. TREATMENT PLAN 1. We will continue on his current treatment protocol. Will monitor his response and make further adjustments as needed. 2. We will continue to follow up. Dictated by... Alfredito Jin/ankit TD: 08/07/2016 10:11 JOB #: [id number] Unit #: [id number] #: [id number] Patient: CESIA CASTRO [facility] PROGRESS NOTES Page 1 of 1 X Kvng Bhagat MD PROGRESS NOTE
--- NOTE | ~2016-08-04 | DS ---
Unit #: [id number] #: [id number] Patient: CSEIA CASTRO [id number] [facility] [address] [place] [address] [id number] I MR#: [id number] NAME: CESIA CASTRO. ROOM: P114 Age: 56 Sex: M Admission Date: 08/04/2016 : 1960 Discharge Date: 08/09/2016 Attending Physician: Kvng Bhagat M.D. Primary Care Physician: Ailyn Newman DISCHARGE SUMMARY IDENTIFYING DATA Mr. Castro is a 56-year-old white male who was just discharged from my care earlier in the day and then he took himself to the lobby and started cutting himself and Code was called and he was transferred to the emergency room for medical clearance, followed by which he was transferred back to us. DISCHARGE DIAGNOSES Psychiatric: Major depressive disorder, recurrent, moderate, without psychotic features. Medical: Asthma, dyslipidemia, hypertension. Stressors: Moderate psychosocial stressors. HISTORY OF PRESENT ILLNESS Please see initial psychiatric evaluation for details. PAST PSYCHIATRIC HISTORY Please see initial psychiatric evaluation for details. PAST MEDICAL HISTORY Please see initial psychiatric evaluation for details. HOSPITAL COURSE The patient was admitted to the adult psychiatric unit at [facility] and was started back on his home medications including his Celexa, which was just discharged upon and was maintained on suicide watch and he was once again seen to be showing very manipulative and attention seeking and at times malingering behavior and was maintained on the suicide watch and then he stated that he has an appointment with his doctor and that he is not suicidal anymore and he wants to go and was denying any thoughts of wanting to hurt himself or anyone else, and as such, it was decided that he will be discharged home and will continue treatment on an outpatient basis. DISCHARGE CONDITION Stable. PROGNOSIS Guarded. Dictated by... Kvng Bhagat M.D. Unit #: [id number] #: [id number] Patient: CESIA CASTRO IAA/modl TD: 08/09/2016 22:54 JOB #: [id number] DISCHARGE SUMMARY Page 1 of 1 X Kvng Bhagat MD DISCHARGE SUMMARY
--- NOTE | ~2016-08-04 | PN ---
Unit #: [id number] #: [id number] Patient: CESIA CASTRO [id number] [facility] [address] [place] [address] [id number] I MR#: [id number] NAME: CESIA CASTRO. ROOM: P114 Age: 56 Sex: M Admission Date: 08/04/2016 : 1960 Attending Physician: Kvng Bhagat M.D. Admitting Physician: Kvng Bhagat M.D. Primary Care Physician: Ailyn Newman [facility] PROGRESS NOTES DATE August 07, 2016 DISCUSSION Mr. Castro was seen today and chart was reviewed. The case was discussed with the staff. He has been maintained on suicidal watch after he attempted to cut himself in the hospital lobby requiring code to be called and since then has been put on suicidal watch. As he came back to the hospital the same day and was quite desperate to get into the hospital to an extent that he even cut himself in the lobby and, due to his behavior, he was maintained on a higher level of suicide watch and he does not like that and wants to stay in the hospital, but does not want to be on the suicide watch even though his main presentation has been suicide and, as such, he has been very agitated and irritable and has been making allegations and different remarks and using offensive language and telling the staff members that I am not seeing him so, as I approach him, he stays in his room and does not really like to talk to me so, today, I pulled him out of his room and had him sit down at the table and have an interaction with me and he once again seemed to be showing very negative attitude and behaviors stating that he does not like to be on a room lockout and that he wants to know what the plan is and we, of course, told him that we have him on a suicide watch because of his report of being suicidal and that is just for his own personal safety and a therapeutic measurement, but he was not really looking into it and then, he stated that he is on a 72-hour hold and asked when the 72-hour hold is and he informed me that once that hold expires, he is going to sign himself out. I told him that it would have to be against medical advice and he stated that he is not suicidal at this time and he does not want to be here anymore and, as such, recommendation will be made for patient to be discharged against medical advice. If he wishes and chooses to (1)____ himself, he would have to sign a safety plan making sure that he is not a danger to himself and is not having any suicidal ideations, but I have a very strong suspicion that patient has been exhibiting very manipulative behavior at this time. Dictated by... Alfredito Jin Unit #: [id number] #: [id number] Patient: CESIA CASTRO TD: 08/07/2016 11:32 JOB #: [id number] [facility] PROGRESS NOTES Page 1 of 1 X Kvng Bhagat MD X PROGRESS NOTE
--- NOTE | ~2016-08-04 | CO ---
Unit #: [id number] #: [id number] Patient: CESIA CASTRO [id number] [facility] [address] [place] [address] [id number] I MR#: [id number] NAME: CESIA CASTRO. ROOM: P114 Age: 56 Sex: M Admission Date: 08/04/2016 : 1960 Attending Physician: Kvng Bhagat M.D. Consultation Date: 08/05/2016 CONSULTATION REPORT JESUS Fairbanks is a 56-year-old with a self-inflicted superficial wounds to bilateral forearms. These areas were described in his admission H and P dated 08/05/2016. Please see H and P dated 08/05/2016. Dictated by... Melissa Hernandez P.A.-C. for Alfredito Wiggins/florecita TD: 08/06/2016 16:33 JOB #: [id number] CONSULTATION REPORT Page 1 of 1 X Melissa Hernandez CONSULTATION REPORT
--- NOTE | ~2016-08-04 | PN ---
Unit #: [id number] #: [id number] Patient: CESIA CASTRO [id number] [facility] [address] [place] [address] [id number] I MR#: [id number] NAME: CESIA CASTRO. ROOM: P114 Age: 56 Sex: M Admission Date: 08/04/2016 : 1960 Attending Physician: Kvng Bhagat M.D. Admitting Physician: Kvng Bhagat M.D. Primary Care Physician: Ailyn JARVIS PROGRESS NOTES DATE 08/08/2016 DISCUSSION Mr. Castro is a 56-year-old, white male who was seen today and chart was reviewed and case was discussed with the staff. He has been anxious, withdrawn and rather seclusive to himself. Meanwhile, he reports persistent depressive symptoms and feelings of hopelessness and suicidal ideations. He has been taking medications and tolerating them fairly well with no reported side effects. MENTAL STATUS EXAM Middle-aged white male who was casually dressed with fair personal hygiene, appears to be in no acute distress or discomfort. He was awake and alert on interaction with intact orientation. His mood was anxious with congruent affect. His speech was slow and goal directed. He reports having suicidal ideation but denies any homicidal ideation. Also, denies any auditory or visual hallucinations. His insight and judgement remains significantly impaired. TREATMENT PLAN 1. We will continue him on his current medications and treatment protocol. We will monitor his response to the medication and make further adjustments as needed. 2. We will continue to follow up. Dictated by... Alfredito Jin/sascha TD: 08/11/2016 02:16 JOB #: [id number] Unit #: [id number] #: [id number] Patient: CESIA CASTRO PEAKEVIN PROGRESS NOTES Page 1 of 1 X Kvng Bhagat MD PROGRESS NOTE
--- NOTE | ~2016-08-04 | PA ---
Unit #: [id number] #: [id number] [facility] [id number] [facility] [address] [place] [address] [id number] I MR#: [id number] NAME: CESIA CASTRO. ROOM: P114 Age: 56 Sex: M Admission Date: 08/04/2016 : 1960 Date of Assessment: Attending Physician: Kvng Bhagat M.D. Admitting Physician: Kvng Bhagat M.D. Primary Care Physician: Ailyn Newman PSYCHIATRIC ASSESSMENT DATE OF SERVICE 08/05/2016. HISTORY OF PRESENT ILLNESS Mr. Castro is a 56-year-old white male, who was just discharged from inpatient hospitalization at [facility]. He came today and left for a few hours and went to the primary lobby in front of the hospital and started to cut his wrist in the lobby and Code 200 was called and he was seen to have superficial cuts and none of them was deep; however, [facility] Dictated by... Alfredito Jin/samreenl TD: 08/05/2016 08:14 JOB #: [id number] PSYCHIATRIC ASSESSMENT Page 1 of 1 X Kvng Bhagat MD PSYCHIATRIC ASSESSMENT
== END 2016-08-09 12:24 | disposition home or self-care (01) | DRG 885 ==
LOC: P1S 17:12
DX: F33.1 Major depressive disorder, recurrent, moderate (principal); I10 Essential (primary) hypertension; J44.9 Chronic obstructive pulmonary disease, unspecified; E78.5 Hyperlipidemia, unspecified; I25.10 Atherosclerotic heart disease of native coronary artery without angina pectoris; F17.210 Nicotine dependence, cigarettes, uncomplicated

== ENCOUNTER 2016-10-23 14:02 | Emergency (ER) | payer MEDICAID ==
--- NOTE | ~2016-10-23 | EKG ---
PATIENT: CESIA CASTRO UNIT #: [id number] Ventricular Rate: 82 BPM Atrial Rate: 82 BPM P-R Interval: 166 ms QRS Duration: 86 ms Q-T Interval: 382 ms QTC Calculation(Bezet): 446 ms P [place]: 77 degrees Calculated R [place]: -53 degrees Calculated T [place]: 41 degrees Diagnosis Line: Normal sinus rhythm Diagnosis Line: Left anterior fascicular block Diagnosis Line: Abnormal ECG Diagnosis Line: When compared with ECG of 25-JUL-2016 20:30, Diagnosis Line: No significant change was found Diagnosis Line: Confirmed by ANA LUJAN MD ([id number]) on 10/24/2016 Diagnosis Line: 5:48:24 PM INTERPRETING MD: TAI DENTON
== END 2016-10-23 15:23 | disposition home or self-care (01) ==
LOC: SED 14:02
DX: I10 Essential (primary) hypertension (principal); F41.9 Anxiety disorder, unspecified; Z76.0 Encounter for issue of repeat prescription
CPT/HCPCS: 93005; 99283